=== PATIENT | male | born 1940 | race Caucasian/White ===

== ENCOUNTER 2017-06-04 08:22 | Inpatient (IN) | payer OTHER ==
[2017-06-04] MEDS ORDERED: Midazolam 1mg/ml 2 ml vial IV ONE ×2 (08:26→09:14)
[2017-06-04] MEDS ORDERED: Midazolam 1mg/ml 2 ml vial IV STA ×2 (08:45→09:12)
[2017-06-04] MEDS ORDERED: Levofloxacin 500mg/100mL 500 MG/100 ML BAG IV ONE ×2 (09:18→09:26)
--- NOTE | 2017-06-04 09:18 | ED Physician Chart ---
ED Chief Complaint/HPI - Patient Information Date Seen:: 06/04/17 Time Seen:: 08:35 Chief Complaint:: Dyspnea History of Present Illness:: onset x 3 hours of dyspnea, cough, and congestion with wheezing; no report of H/ As, neck pain, S/T, hempotysis, C/P, Abd. Pain, A/N/V/D/C, fever, chills, or urinary s/s Allergies:: Allergies Allergy/AdvReac Type Severity Reaction Status Date / Time No Known Allergies Allergy Verified 06/04/17 08:38 Vitals:: Vital Signs - 8 hr 06/04/17 06/04/17 08:39 08:47 Temp 98.3 F 98.3 F HR 116 108 RR 32 13 BP 180/61 180/61 O2 Sat % 75 99 Historian:: Patient, EMS Review:: Nurse's Note Reviewed, Old Chart Reviewed, EMS run form Reviewed ED Review of Systems - Review of Systems General/Constitutional: No fever, No chills, No weight loss, No weakness, No diaphoresis, No edema, No loss of appetite Skin: No skin lesions, No rash, No bruising Head: No headache, No light-headedness Eyes: No loss of vision, No pain, No diplopia ENT: No earache, No nasal drainage, No sore throat, No tinnitus Neck: No neck pain, No swelling, No thyromegaly, No stiffness, No mass noted Cardio Vascular: No chest pain, No palpitations, No PND, No orthopnea, No edema Pulmonary: SOB, Cough, No sputum, Wheezing GI: No nausea, No vomiting, No diarrhea, No pain, No melena, No hematochezia, No constipation, No hematemesis G/U: No dysuria, No frequency, No hematuria Musculoskeletal: No bone or joint pain, No back pain, No muscle pain Endocrine: No polyuria, No polydipsia Psychiatric: No prior psych history, No depression, No anxiety, No suicidal ideation Hematopoietic: No bruising, No lymphadenopathy Allergic/Immuno: No urticaria, No angioedema Neurological: No syncope, No focal symptoms, No weakness, No paresthesia, No headache, No seizure, No dizziness, No confusion, No vertigo ED Past Medical History - Past Medical History Obtainable: Yes Past Medical History: HTN, Asthma/COPD Family History: HTN Social History: Smoker, Alcohol, No Drug Use, Surgical History: None Psychiatricy History: None Medication: Reviewed Family Medical History - Family Member Father History Unknown: Yes ED Physical Exam - Physical Examination General/Constitutional: Awake, Well-developed, well-nourished, Alert, No distress, GCS 15, Non-toxic appearing, Ambulatory Head: Atraumatic Eyes: Lids, conjuctiva normal, PERRL, EOMI Skin: Nl inspection, No rash, No skin lesions, No ecchymosis, Well hydrated, No lymphadenopathy ENMT: External ears, nose nl, TM canals nl, Nasal exam nl, Lips, teeth, gums nl , Oropharynx nl, Tonsils nl Neck: Nontender, Full ROM w/o pain, No JVD, No nuchal rigidity, No bruit, No mass, No stridor Respiratory: Nl effort/Exclusion Other Respiratory comments:: Lungs: + Rales, Rhonchi, and Wheezing; R>L Cardio Vascular: RRR, No murmur, gallop, rubs, NL S1 S2, Carotid/Femoral/Distal pulses equal bilaterally GI: No tenderness/rebounding/guarding, No organomegaly, No hernia, Normal BS's, Nondistended, No mass/bruits, No McBurney tenderness : No CVA tenderness Extremities: No tenderness or effusion, Full ROM, normal strength in all extremities, No edema, Normal digits & nails Neuro/Psych: Alert/oriented, DTR's symmetric, Normal sensory exam, Normal motor strength, Judgement/insight normal, Mood normal, Normal gait, No focal deficits Misc: Normal back, No paraspinal tenderness ED Labs/Radiology/EKG Results - Lab Results Comments:: WBC: 16.9; D-Dimer: 465; BNP:810; Na+: 135 - Radiology Results Comments:: CXR: Good ET Tube Placement; + CM; + RML Infiltrate; + COPD - EKG Interpretations EKG Time:: 10:41 Rate & Rhythm: 106; ST Comments:: PVCs; non-specific ST-T Changes ED Assessment - Procedures Procedures:: Oral Endotracheal Intubation Informed Consent: Procedure/risk/benefits explained by MD: Yes ED Septic Shock - . Is Septic Shock (SBP<90, OR Lactate>4 mmol\L) present?: No - <6hrs of presentation: Vital Signs: Vital Signs - 8 hr 06/04/17 06/04/17 08:39 08:47 Temp 98.3 F 98.3 F HR 116 108 RR 32 13 BP 180/61 180/61 O2 Sat % 75 99 ED Reassessment (Disposition) - Reassessment Reassessment Condition:: Improved - Diagnosis Diagnosis:: COPD; Dyspnea; CHF; Hypotension; Exacerbation of COPD; Pneumonia; Hyponatremia; Sepsis; Respiratory Failure; R/O Pulmonary Embolus - Aftercare/Follow up Instructions Aftercare/Follow-Up Instructions:: Counseled pt regarding lab results/diagnosis & need follow up, Counseled pt & family regarding lab results/diagnosis & need follow up - Patient Disposition Discharge/Transfer:: Acute Care w/in this hosp Accepting Physician:: Dr. Santana Time Called:: 1100 Time Responded:: 11:00 Admitted to:: ICU Spoke to:: Dr. Santana Admitting Medical Physician:: Dr. Santana Condition at Disposition:: Stable, Improved
[2017-06-04 09:22] LABS: HEMOGLOBIN 12.4 gm/dL (12-16)
--- NOTE | 2017-06-04 09:27 | Diagnostic Imaging Report ---
Portable chest x-ray HISTORY: Pain The heart is enlarged. Atherosclerotic calcination seen in the aorta. There is extensive abnormal density within the right hilar/perihilar region with severe infiltrate throughout the right lower lobe. Findings may be associated with pneumonia. Underlying right hilar pathology cannot be excluded. There is an approximate 2.0 cm nodular density projecting over the periphery of the left mid chest. The pulmonary parenchymal nodule cannot be excluded. An endotracheal tube tip is approximately 3.5 cm above the sobeida. Surgical suture material and clips noted over the heart. IMPRESSION: 1. Extensive abnormal density in infiltrate within the right hilar/perihilar area. Findings may be associated with pneumonia. Underlying hilar pathology cannot be excluded 2. Round density in the periphery of the left mid chest. Etiology uncertain. A follow-up CT scan would provide for further assessment. 3. Cardiomegaly with atherosclerotic vascular changes 4. Surgical changes 5. Endotracheal tube tip approximately 3.5 cm above the sobeida.
[2017-06-04 09:38] LABS: ALB/GLOB RATIO 1.4 (1.0-1.8); ALBUMIN 3.6 gm/dL (4.2-5.5); ALKALINE PHOSPHATASE 69 U/L (34-104); ANION GAP 9.9 (7.0-16.0); BILIRUBIN,TOTAL 0.4 mg/dL (0.3-1.0); BUN - UREA NITROGEN 15 mg/dL (7-25); CALCIUM SERUM 8.7 mg/dL (8.6-10.3); CARBON DIOXIDE 32.6 mEq/L (21.0-31.0); CHLORIDE 97 mEq/L (98-107); CHOLESTEROL 177 mg/dL (<200); CREATININE - SERUM 0.6 mg/dL (0.7-1.3); CREATININE KINASE 53 U/L (30-223); GLUCOSE 126 mg/dL (70-105); HDL -HIGH DENSITY LIPOPROTEIN 75 mg/dL (23-92); HEMATOCRIT 37.3 % (41.0-60); POTASSIUM SERUM 4.5 mEq/L (3.5-5.1); RED BLOOD COUNT 3.77 Mil/cmm (3.80-5.80); SGOT 44 U/L (13-39); SGPT/ALT 86 U/L (7-52); SODIUM SERUM 135 mEq/L (136-145); TOTAL PROTEIN,SERUM 6.1 gm/dL (6.0-8.3); TRIGLYCERIDES 76 mg/dL (<150); WHITE BLOOD COUNT 16.9 Th/cmm (4.8-10.8)
[2017-06-04 09:39] LABS: MEAN CELL VOLUME 98.9 fl (80-99); MEAN CORPUSCULAR HGB CONC 33.3 pg (28.0-36.0); PLATELET COUNT 250 Th/cmm (150-400); RED CELL DISTRIBUTION WIDTH 13.6 % (11.5-20.0)
[2017-06-04 09:40] LABS: MANUAL DIFF REQUIRED? YES
[2017-06-04 09:48] LABS: BAND NEUTROPHILE 3 % (0-10); EOSINOPHIL 3 % (0-5); LYMPHOCYTE 8 % (20-50); MONOCYTE 3 % (2-10); NEUTROPHILS 83 % (40-80); TOTAL CELLS COUNTED 100
[2017-06-04 09:51] LABS: INR 1.07 (0.5-1.4); PROTHROMBIN TIME (TEST) 11.1 SECONDS (9.5-11.5)
[2017-06-04 09:55] LABS: DDIMER QUANT 465 ng/mL (100-400)
[2017-06-04] MEDS ORDERED: Sodium Chloride 0.9% 1,000 ML IV ONE (10:30)
[2017-06-04 10:34] LABS: URINE MICROSCOPIC INDICATED? YES; URINE SOURCE MIDSTREAM
[2017-06-04 10:36] LABS: URINE BILIRUBIN NEGATIVE (NEGATIVE); URINE BLOOD NEGATIVE (NEGATIVE); URINE GLUCOSE (UA) NEGATIVE (NEGATIVE); URINE KETONE NEGATIVE (NEGATIVE); URINE LEUKOCYTE ESTERASE NEGATIVE (NEGATIVE); URINE NITRATE NEGATIVE (NEGATIVE); URINE PROTEIN 30 mg/dL (NEGATIVE); URINE UROBILINOGEN 0.2 E.U./dL (0.2 - 1.0)
[2017-06-04 10:37] LABS: URINE CLARITY HAZY (CLEAR); URINE COLOR YELLOW
[2017-06-04 10:42] LABS: URINE BACTERIA FEW /hpf (NONE SEEN); URINE EPITHELIAL CELLS FEW /lpf (FEW); URINE FINE GRANULAR CAST 0-2 /lpf (NONE SEEN); URINE RBC 0-2 /hpf (0-5)
[2017-06-04 13:53] LABS: pH 7.36 (7.35-7.45)
[2017-06-04 13:54] LABS: ALLEN TEST Positive
[2017-06-04] MEDS: D5-0.9NS w/KCL 20mEq 1,000 ML IV SCH (14:47)
[2017-06-04] MEDS: methylPREDNISolone SS 40 mg Vial IVP SCH ×2 (14:47→18:43)
[2017-06-04 15:30] VITALS: BP 130/76
[2017-06-04] MEDS: Albuterol/Ipratropium Neb 3 ML AERS HHN SCH ×2 (15:49→19:44)
--- NOTE | 2017-06-04 15:51 | History & Physical ---
ADMIT DATE: 06/04/2017 CHIEF COMPLAINT: Acute respiratory failure. HISTORY OF PRESENT ILLNESS: The patient is a 77-year-old male with history of COPD, presented to the Emergency Room with cough, shortness of breath of a few days' duration. The patient evaluated by the ER physician. Initial workup was significant for pneumonia, acute respiratory failure. The patient was intubated to ICU. No nausea, no vomiting, no chest pain. The patient is on the ventilator, but still following commands. PAST MEDICAL HISTORY: Significant for COPD. PAST SURGICAL HISTORY: No recent surgery. ALLERGIES: None. MEDICATIONS: Follow admission reconciliation. SOCIAL HISTORY: Chronic smoker. No alcohol or drugs. FAMILY HISTORY: Noncontributory. REVIEW OF SYSTEMS: RENAL SYSTEM: No history of chronic renal disorder. CARDIOVASCULAR SYSTEM: No coronary artery disease. ENDOCRINE SYSTEM: No diabetes or thyroid problem. GASTROINTESTINAL SYSTEM: No upper or lower gastrointestinal bleed. NEUROLOGICAL SYSTEM: No seizure disorder. MUSCULOSKELETAL SYSTEM: No muscular dystrophy. HEMATOLOGIC SYSTEM: No bleeding tendencies. RESPIRATORY SYSTEM: History of COPD, pneumonia, acute respiratory failure. PHYSICAL EXAMINATION: GENERAL: He is awake, he is on the ventilator, following some commands, mildly agitated. VITAL SIGNS: Temperature 99.3, heart rate 100, blood pressure 114/65. HEENT: Normocephalic. Pupils reacting equal to light and accommodation. Sclerae clear. NECK: Supple. Negative for lymphadenopathy, JVD or bruit. CHEST: Entry of air bilaterally diminished. HEART: S1, S2 normal. Tachycardia. ABDOMEN: Soft, bowel sounds positive. EXTREMITIES: No edema. NEUROLOGICAL: He is awake, following command, moving upper and lower extremities. LABORATORY DATA: White blood 16.9, hemoglobin 12.4, hematocrit 37.3, platelet 250. Sodium 135, potassium 4.5, BUN 15, creatinine 0.6. BNP 810. ASSESSMENT: 1. Pneumonia. 2. Acute respiratory failure. 3. Acute exacerbation of COPD. 4. Congestive heart failure. PLAN: The patient admitted to the ICU under Dr. Santana's service. Start him on IV fluid, IV Protonix, IV Solu-Medrol, breathing treatment. Pulmonary was consulted on the case. Infectious Disease consult on the case. Echocardiogram was ordered. CBC, CMP for tomorrow. The patient is a full code. Lovenox 40 subq daily for DVT prophylaxis. JOB# [id number]
[2017-06-04 17:25] LABS: INF A SCREEN NEG FOR INF A; INF B SCREEN NEG FOR INF B
[2017-06-04] MEDS: Levofloxacin 250mg/50mL 250 MG/50 ML BAG IV SCH (18:42)
[2017-06-04] MEDS: Chlorhexidine Gluconate 0.12% 15mL Mouthwash MM SCH (20:11)
[2017-06-04] MEDS: Enoxaparin 40 mg/0.4 mL 0.4mL Syr SUBQ SCH (20:47)
[2017-06-05] MEDS: methylPREDNISolone SS 40 mg Vial IVP SCH ×5 (00:12→23:31)
[2017-06-05] MEDS: Albuterol/Ipratropium Neb 3 ML AERS HHN SCH ×4 (00:43→19:38)
--- NOTE | 2017-06-05 03:47 | Consultation ---
DATE OF CONSULTATION: 06/04/[address] Santana. Thank you very much Dr. Santana for this consultation. HISTORY OF PRESENT ILLNESS: The patient is a 77-year-old man with history of COPD, presents with acute respiratory distress, hypoxemia. He is in severe distress, required to be intubated. The patient is intubated, awake, responsive, not in acute distress. The patient stated he does have COPD and has been smoker for many years up to the point of admission. PAST MEDICAL HISTORY: As above. SOCIAL HISTORY: As above. REVIEW OF SYSTEMS: Unable to obtain because of the patient's condition. PHYSICAL EXAMINATION: GENERAL: The patient is intubated, not in distress. VITAL SIGNS: Temperature 99.3, pulse 100, respirations 13, blood pressure is 114/65, and saturation 99%. HEENT: Atraumatic and normocephalic. Pupils are equal to light and accommodation. Ears, nose, and throat normal. NECK: Supple. No JVD. CHEST: There are scattered wheezing and rhonchi bilaterally. HEART: Regular rate and rhythm. ABDOMEN: Soft. EXTREMITIES: No edema. LABORATORY DATA AND DIAGNOSTIC DATA: WBC 16.9, hemoglobin 12.4, hematocrit was 37.3, and platelets 250. Sodium 135, potassium is 4.5, BUN is 15, and creatinine 0.6. BNP is 810. A chest x-ray, extensive infiltrates, right lower lobe area. COPD changes. IMPRESSION: 1. This is a 77-year-old male with acute respiratory failure. 2. Chronic obstructive pulmonary disease exacerbation. 3. Pneumonia. PLAN: 1. IV antibiotics. 2. Nebulizer treatment. 3. Ventilator support. 4. Follow up ABGs. 5. Sputum culture and influenza test as well. Thank you very much for this consultation. I will follow the patient with you. JOB# [id number]
[2017-06-05] MEDS: D5-0.9NS w/KCL 20mEq 1,000 ML IV SCH ×2 (04:51→15:24)
[2017-06-05 06:12] LABS: HEMOGLOBIN 11.1 gm/dL (12-16); LYMPHOCYTE ABSOLUTE 0.3 Th/cmm (1.5-3.0); MEAN CELL VOLUME 98.3 fl (80-99); MEAN CORPUSCULAR HGB CONC 33.6 pg (28.0-36.0); MEAN PLATELET VOLUME 8.2 fl; MONOCYTE ABSOLUTE 0.2 Th/cmm (0.3-1.0); NEUTROPHILE ABSOLUTE 7.1 Th/cmm (1.8-8.0); PLATELET COUNT 221 Th/cmm (150-400); RED BLOOD COUNT 3.35 Mil/cmm (3.80-5.80); RED CELL DISTRIBUTION WIDTH 13.4 % (11.5-20.0)
[2017-06-05 06:13] LABS: WHITE BLOOD COUNT 7.6 Th/cmm (4.8-10.8)
[2017-06-05 06:25] LABS: ALB/GLOB RATIO 1.4 (1.0-1.8); ALKALINE PHOSPHATASE 54 U/L (34-104); ANION GAP 7.6 (7.0-16.0); BILIRUBIN,TOTAL 0.5 mg/dL (0.3-1.0); BUN - UREA NITROGEN 17 mg/dL (7-25); CALCIUM SERUM 8.4 mg/dL (8.6-10.3); CARBON DIOXIDE 34.2 mEq/L (21.0-31.0); CHLORIDE 102 mEq/L (98-107); CREATININE - SERUM 0.6 mg/dL (0.7-1.3); GLUCOSE 156 mg/dL (70-105); POTASSIUM SERUM 4.8 mEq/L (3.5-5.1); SGOT 19 U/L (13-39); SGPT/ALT 56 U/L (7-52); SODIUM SERUM 139 mEq/L (136-145); TOTAL PROTEIN,SERUM 5.2 gm/dL (6.0-8.3)
--- NOTE | 2017-06-05 09:06 | Diagnostic Imaging Report ---
Portable chest x-ray HISTORY: Shortness of breath Compared with prior exam of June 04, 2017, the heart remains enlarged. There remains abnormal density within the right hilar/perihilar region. Underlying pathology including neoplasm cannot be excluded. A CT scan is recommended for further assessment and evaluation. Slight decrease in right perihilar infiltrate. An endotracheal tube tip is approximately 5.0 cm above the sobeida. Surgical changes again noted. IMPRESSION: 1. Decreased infiltrate within the right perihilar and right lower lobe regions 2. Persistent abnormal density within the right hilar area. Underlying pathology including neoplasm cannot be excluded. A CT scan with intravenous contrast would provide additional assessment. 3. Endotracheal tube tip approximate 5.0 cm above the sobeida. This may be advanced approximately 2.0 cm.
[2017-06-05 10:04] LABS: ALLEN TEST Positive
[2017-06-05] MEDS: Enoxaparin 40 mg/0.4 mL 0.4mL Syr SUBQ SCH ×2 (10:16→20:37)
[2017-06-05] MEDS: Chlorhexidine Gluconate 0.12% 15mL Mouthwash MM SCH ×2 (10:16→20:18)
[2017-06-05] MEDS ORDERED: Probiotic Screen MC PRN (10:30)
[2017-06-05] MEDS ORDERED: Influenza Vaccine 0.5 mL Syr IM ONE (15:51)
[2017-06-05] MEDS ORDERED: Pneumococcal Vaccine 0.5 mL Vial IM ONE (15:51)
--- NOTE | 2017-06-05 17:31 | Internal Medicine Prog Note ---
Internal Medicine Subjective - Subjective Service Date: 06/05/17 Patient seen and examined:: with staff Patient is:: awake, non-verbal, in bed Patient Complaints of:: congestion Per staff patient has:: no adverse event Internal Medicine Objective - Results Result Diagrams: 06/05/17 05:15 06/05/17 05:15 Recent Labs: Laboratory Last Values WBC 7.6 Th/cmm (4.8-10.8) D 06/05/17 05:15 RBC 3.35 Mil/cmm (3.80-5.80) L 06/05/17 05:15 Hgb 11.1 gm/dL (12-16) L 06/05/17 05:15 Hct 33.0 % (41.0-60) L D 06/05/17 05:15 MCV 98.3 fl (80-99) 06/05/17 05:15 MCH 33.0 pg (27.0-31.0) H 06/05/17 05:15 MCHC Differential 33.6 pg (28.0-36.0) 06/05/17 05:15 RDW 13.4 % (11.5-20.0) 06/05/17 05:15 Plt Count 221 Th/cmm (150-400) 06/05/17 05:15 MPV 8.2 fl 06/05/17 05:15 Band Neutrophils % 3 % (0-10) 06/04/17 09:10 Neutrophils (Manual) 83 % (40-80) H 06/04/17 09:10 Lymphocytes 8 % (20-50) L 06/04/17 09:10 Monocytes 3 % (2-10) 06/04/17 09:10 Eosinophils 3 % (0-5) 06/04/17 09:10 PT 11.1 SECONDS (9.5-11.5) 06/04/17 09:10 INR 1.07 (0.5-1.4) 06/04/17 09:10 PTT (Actin FS) 22.5 SECONDS (26.0-38.0) L 06/04/17 09:10 D-Dimer 465 ng/mL (100-400) H 06/04/17 09:10 Specimen Source Arterial 06/05/17 09:52 Sample Site Right Radial 06/05/17 09:52 pH 7.40 (7.35-7.45) 06/05/17 09:52 pCO2 60.0 mmHg (35.0-45.0) H* 06/05/17 09:52 pO2 87.0 mmHg (80.0-100.0) 06/05/17 09:52 HCO3 32.9 mEq/L (20.0-26.0) H 06/05/17 09:52 Base Excess 10.2 mEq/L (-3.0-3.0) H 06/05/17 09:52 O2 Saturation 97.0 % (92.0-100.0) 06/05/17 09:52 Guy Test Positive 06/05/17 09:52 Vent Rate 12 06/05/17 09:52 Inspired O2 40 06/05/17 09:52 Tidal Volume 550 06/05/17 09:52 PEEP NA 06/05/17 09:52 Pressure (ins/psv/peep) NA 06/05/17 09:52 Critical Value LZHANG 06/05/17 09:52 Sodium 139 mEq/L (136-145) 06/05/17 05:15 Potassium 4.8 mEq/L (3.5-5.1) 06/05/17 05:15 Chloride 102 mEq/L (98-107) 06/05/17 05:15 Carbon Dioxide 34.2 mEq/L (21.0-31.0) H 06/05/17 05:15 Anion Gap 7.6 (7.0-16.0) 06/05/17 05:15 BUN 17 mg/dL (7-25) 06/05/17 05:15 Creatinine 0.6 mg/dL (0.7-1.3) L 06/05/17 05:15 Est GFR ( Amer) TNP 06/05/17 05:15 Est GFR (Non-Af Amer) TNP 06/05/17 05:15 BUN/Creatinine Ratio 28.3 06/05/17 05:15 Glucose 156 mg/dL (70-105) H 06/05/17 05:15 Whole Bld Lactic Acid 1.34 mmol/L (0.60-1.99) 06/04/17 09:10 Calcium 8.4 mg/dL (8.6-10.3) L 06/05/17 05:15 Magnesium 2.0 mg/dL (1.9-2.7) 06/05/17 15:47 Total Bilirubin 0.5 mg/dL (0.3-1.0) 06/05/17 05:15 AST 19 U/L (13-39) 06/05/17 05:15 ALT 56 U/L (7-52) H 06/05/17 05:15 Alkaline Phosphatase 54 U/L (34-104) 06/05/17 05:15 Creatine Kinase 53 U/L (30-223) 06/04/17 09:10 Troponin I 0.04 ng/mL (0.01-0.05) 06/04/17 09:10 B-Natriuretic Peptide 810.0 pg/mL (5.0-100.0) H 06/04/17 09:10 Total Protein 5.2 gm/dL (6.0-8.3) L 06/05/17 05:15 Albumin 3.0 gm/dL (4.2-5.5) L 06/05/17 05:15 Globulin 2.2 gm/dL 06/05/17 05:15 Albumin/Globulin Ratio 1.4 (1.0-1.8) 06/05/17 05:15 Triglycerides 76 mg/dL (<150) 06/04/17 09:10 Cholesterol 177 mg/dL (<200) 06/04/17 09:10 LDL Cholesterol Direct 95 mg/dL (75-193) 06/04/17 09:10 HDL Cholesterol 75 mg/dL (23-92) 06/04/17 09:10 Urine Source MIDSTREAM 06/04/17 10:20 Urine Color YELLOW 06/04/17 10:20 Urine Clarity HAZY (CLEAR) 06/04/17 10:20 Urine pH 6.0 (4.6 - 8.0) 06/04/17 10:20 Ur Specific [place] >= 1.030 (1.005-1.030) 06/04/17 10:20 Urine Protein 30 mg/dL (NEGATIVE) H 06/04/17 10:20 Urine Glucose (UA) NEGATIVE mg/dL (NEGATIVE) 06/04/17 10:20 Urine Ketones NEGATIVE mg/dL (NEGATIVE) 06/04/17 10:20 Urine Blood NEGATIVE (NEGATIVE) 06/04/17 10:20 Urine Nitrate NEGATIVE (NEGATIVE) 06/04/17 10:20 Urine Bilirubin NEGATIVE (NEGATIVE) 06/04/17 10:20 Urine Urobilinogen 0.2 E.U./dL (0.2 - 1.0) 06/04/17 10:20 Ur Leukocyte Esterase NEGATIVE (NEGATIVE) 06/04/17 10:20 Urine RBC 0-2 /hpf (0-5) H 06/04/17 10:20 Urine WBC 2-5 /hpf (0-5) H 06/04/17 10:20 Ur Epithelial Cells FEW /lpf (FEW) 06/04/17 10:20 Urine Bacteria FEW /hpf (NONE SEEN) 06/04/17 10:20 Fine Granular Casts 0-2 /lpf (NONE SEEN) H 06/04/17 10:20 Urine Mucus FEW /lpf (FEW) 06/04/17 10:20 Vancomycin Trough 7.9 ug/mL (10-20) L 06/05/17 12:40 Influenza A (Rapid) NEG FOR INF A 06/04/17 16:55 Influenza B (Rapid) NEG FOR INF B 06/04/17 16:55 - Physical Exam Vitals and I&O: Vital Signs Temp 98.7 F 06/05/17 16:00 Pulse 91 06/05/17 16:00 Resp 17 06/05/17 16:00 BP 121/68 06/05/17 16:00 Pulse Ox 98 06/05/17 16:00 Intake & Output 06/04/17 06/05/17 06/05/17 18:59 06:59 18:59 Intake Total 50 1465 885 Output Total 600 Balance 50 865 885 Weight (lbs) 65.771 kg Intake: Intake, IV Amount 50 1465 885 D5-0.9NS w/KCL 20mEq 1, 1115 885 000 ml @ 100 mls/hr IV . Q10H [facility] Rx#:[id number] Levofloxacin 250mg/50mL 50 250 mg In 50 ml @ 50 mls/ hr IV Q24HR [facility] Rx#: [id number] Piperacillin Sodium/ 50 50 Tazobact 3.375 gm In Sodium Chloride 0.9% 50 ml @ 100 mls/hr IV Q6HR [facility]IETA Rx#:[id number] Vancomycin HCl 1 gm In 250 Sodium Chloride 0.9% 250 ml @ 165 mls/hr IV Q12H [facility] Rx#:[id number] Oral 0 Output: Urine 600 Other: # Bowel Movements 0 Active Medications: Current Medications Acetaminophen (Tylenol 650mg Supp) 650 mg RC Q6H PRN PRN Reason: Fever >100 Stop: 08/03/17 12:44 Albuterol/Ipratropium (Duoneb Neb) 3 ml HHN Q6H [facility] Stop: 08/03/17 12:44 Last Admin: 06/05/17 14:13 Dose: 3 ml Chlorhexidine Gluconate (Peridex) 15 ml MM 0800,1999 [facility] Stop: 08/03/17 19:59 Last Admin: 06/05/17 10:16 Dose: 15 ml Enoxaparin Sodium (Lovenox) 40 mg SUBQ Q12HR [facility] Stop: 08/03/17 20:59 Last Admin: 06/05/17 10:16 Dose: 40 mg Potassium Chloride/Dextrose/Sod Cl (D5-0.9ns W/Kcl 20meq) 1,000 mls @ 100 mls/ hr IV .Q10H [facility] Stop: 08/03/17 12:44 Last Admin: 06/05/17 15:24 Dose: 100 mls/hr Vancomycin HCl 1 gm/ Sodium (Chloride) 250 mls @ 165 mls/hr IV Q12H [facility] Stop: 08/03/17 13:59 Last Admin: 06/05/17 15:22 Dose: 165 mls/hr Levofloxacin (Levaquin Pb) 250 mg in 50 mls @ 50 mls/hr IV Q24HR [facility] Stop: 08/03/17 16:59 Last Infusion: 06/04/17 19:45 Dose: Infused Piperacillin Sod/Tazobactam (Sod 3.375 gm/ Sodium Chloride) 50 mls @ 100 mls/ hr IV Q6HR [facility] Stop: 08/04/17 17:59 Lactobacillus Rhamnosus (Culturelle 15b) 1 each PO DAILY [facility] Stop: 08/05/17 08:59 Lorazepam (Ativan) 1 mg IVP Q2HR PRN; Protocol PRN Reason: Agitation Stop: 08/03/17 12:44 Last Admin: 06/05/17 03:24 Dose: 1 mg Methylprednisolone Sodium Succinate (Solu-Medrol) 40 mg IVP Q6HR [facility] Stop: 08/03/17 12:44 Last Admin: 06/05/17 12:36 Dose: 40 mg Miscellaneous (Vancomycin Iv Per Pharmacy) 1 ea [facility] PRN PRN PRN Reason: PROTOCOL Stop: 08/03/17 12:44 Miscellaneous (Probiotic Screen) 1 ea [facility] PRN PRN PRN Reason: PROTOCOL Stop: 08/04/17 10:29 Pantoprazole Sodium (Protonix) 40 mg IVP DAILY [facility] Stop: 08/04/17 08:59 Last Admin: 06/05/17 10:16 Dose: 40 mg HEENT: NC/AT, PERRLA, EOMI, throat clear Neck: Supple, No JVD, No thyromegaly, No LAD Lungs: congested Cardiovascular: RRR, Normal S1, Normal S2, without murmur Abdomen: non-tender, tender, non-distended Extremities: clear Neurological: no change - Procedures Procedures: Procedures Procedure Code Date COLONOSCOPY 45.23 05/25/00 DIAGNOSTIC COLONOSCOPY 68566 05/25/00 DOPPLER COLOR FLOW ADD-ON 59052 11/03/99 DOPPLER ECHO EXAM HEART 57390 11/03/99 DX ULTRASOUND-HEART 88.72 11/03/99 ELECTROCARDIOGRAM 89.52 11/03/99 ELECTROCARDIOGRAM COMPLETE 02475 11/03/99 TTE W/O DOPPLER COMPLETE 83973 11/03/99 Internal Medicine Assmt/Plan - Assessment Assessment: 1.PNEUMONIA. 2.COPD EXACERBATION. 3.CHF. 4.ACUTE REPIRATORY FAILURE. - Plan Plan: CONTINUE ON CURRENT MEDICATION AND DIET
[2017-06-05] MEDS: Levofloxacin 250mg/50mL 250 MG/50 ML BAG IV SCH (17:40)
--- NOTE | 2017-06-05 23:55 | Consultation ---
DATE OF CONSULTATION: 06/04/2017 PRIMARY CARE PHYSICIAN: Dr. Santana. HISTORY OF PRESENT ILLNESS: This is a 77-year-old male known to have asthma and started having shortness of breath. The patient was evaluated in the ER and was found in respiratory failure, intubated, admitted to ICU. Infectious consultation was called for further treatment. The patient's discussed with the staff. Antibiotic adjusted. PAST MEDICAL HISTORY: Alcohol use, asthma, hypertension. FAMILY HISTORY: Negative and the patient is current some day smoker. ALLERGIES: None. REVIEW OF SYSTEMS: A 14-point review of systems unable to obtain as the patient was sedated on examination. PHYSICAL EXAMINATION: GENERAL: The patient is an elderly male. VITAL SIGNS: The patient is on ventilator with the following vitals: Temperature 98.3, pulse 108, respirations 13 on ventilator, blood pressure 180/60. HEENT: Mild pallor, no icterus or plaque. NECK: Supple. LUNGS: Breath sounds bilateral vesicular, decreased all over. CARDIOVASCULAR: S1, S2. ABDOMEN: Soft. Bowel sounds . LYMPHATIC: No thyroid, no cervical lymph nodes. LABORATORY DATA: White count 16,000, hemoglobin normal. D-dimer is 465. BNP is 810. Chest x-ray shows endotracheal tube and right-sided infiltrates, COPD. DIAGNOSES: Asthma, chronic obstructive pulmonary disease, alcohol use, hypertension, and pneumonia. PLAN: Cultures were done and the patient will be started on vancomycin, Zosyn, and Levaquin. Ativan for sedation. COPD, steroids and bronchodilator. DVT prophylaxis, Lovenox. Rest of the care as ordered in [facility]. Thank you Dr. Santana for this consultation. JOB# [id number]
[2017-06-06] MEDS ORDERED: Albuterol/Ipratropium Neb 3 ML AERS HHN ONE ×2 (00:39→20:26)
[2017-06-06] MEDS: Albuterol/Ipratropium Neb 3 ML AERS HHN SCH ×3 (00:47→20:30)
[2017-06-06] MEDS: methylPREDNISolone SS 40 mg Vial IVP SCH ×3 (05:17→17:18)
[2017-06-06] MEDS: D5-0.9NS w/KCL 20mEq 1,000 ML IV SCH ×2 (06:06→20:02)
[2017-06-06] MEDS: Ipratropium Neb 0.5 mg/2.5 mL UD HHN SCH ×2 (07:50→13:01)
[2017-06-06] MEDS: Albuterol Nebulizer 2.5mg/3mL HHN SCH ×2 (07:51→13:01)
[2017-06-06] MEDS: Enoxaparin 40 mg/0.4 mL 0.4mL Syr SUBQ SCH ×2 (09:05→20:58)
[2017-06-06] MEDS: Aspirin 81mg Chewable Tab PO SCH (09:12)
[2017-06-06] MEDS: Lactobacillus Rhamnosus GG 15 Billion CFU CAP.SPRINK PO SCH ×4 (09:14→10:48)
--- NOTE | 2017-06-06 09:17 | Diagnostic Imaging Report ---
Exam: CT examination of the chest. HISTORY: Right hilar mass Total DLP equals 234 CTDI equals 6.1 Findings: Multiple contiguous thin section of the chest were obtained from thoracic outlet to the upper abdomen without the administration of contrast material therefore the study is limited. The study demonstrates normal appearance of great vessels of the neck the study is limited without contrast material adenopathy cannot be excluded. The endotracheal tube visualized. Aorta diffusely calcified. There is evidence for a line check right hilar mass measuring 9.1 cm diameter. There is evidence for right lower lobe pneumonia superimposed effusion. Left pleural thickening with a small effusion appreciated. There is multiple nodularities in the left lung largest one measuring 1.5 cm diameter most likely represent neoplastic metastatic etiology. Bony structures demonstrate no evidence for lytic or blastic lesions. The study somewhat limited due to patient motion artifacts. The upper abdomen examination demonstrates unremarkable appearance of liver and spleen. There is evidence of cholelithiasis. The abdominal aorta diffusely calcified. There is evidence for mesenteric induration in the retroperitoneal area. IMPRESSION: 1. 9.1 cm right hilar mass with subsequent right middle and lower lobe pneumonia and bilateral effusions and pleural thickening. 2. Left lung nodularity is questioned neoplastic metastatic disease. Left basilar atelectasis no pleural effusion. 3. Correlation with prior studies recommended.
[2017-06-06] MEDS: Chlorhexidine Gluconate 0.12% 15mL Mouthwash MM SCH (09:25)
[2017-06-06 15:56] LABS: pH 7.24 (7.35-7.45)
[2017-06-06 15:59] LABS: ALLEN TEST Y
[2017-06-06] MEDS: Levofloxacin 250mg/50mL 250 MG/50 ML BAG IV SCH (17:17)
[2017-06-06 18:10] LABS: ALLEN TEST Y
--- NOTE | 2017-06-06 23:36 | Internal Medicine Prog Note ---
Internal Medicine Subjective - Subjective Service Date: 06/06/17 Patient seen and examined:: with staff (HE EXTUBATED HIM SELF.NOW ON BIPAP.) Patient is:: awake, non-verbal, in bed Patient Complaints of:: congestion Per staff patient has:: no adverse event Internal Medicine Objective - Results Result Diagrams: 06/05/17 05:15 06/05/17 05:15 Recent Labs: Laboratory Last Values WBC 7.6 Th/cmm (4.8-10.8) D 06/05/17 05:15 RBC 3.35 Mil/cmm (3.80-5.80) L 06/05/17 05:15 Hgb 11.1 gm/dL (12-16) L 06/05/17 05:15 Hct 33.0 % (41.0-60) L D 06/05/17 05:15 MCV 98.3 fl (80-99) 06/05/17 05:15 MCH 33.0 pg (27.0-31.0) H 06/05/17 05:15 MCHC Differential 33.6 pg (28.0-36.0) 06/05/17 05:15 RDW 13.4 % (11.5-20.0) 06/05/17 05:15 Plt Count 221 Th/cmm (150-400) 06/05/17 05:15 MPV 8.2 fl 06/05/17 05:15 Band Neutrophils % 3 % (0-10) 06/04/17 09:10 Neutrophils (Manual) 83 % (40-80) H 06/04/17 09:10 Lymphocytes 8 % (20-50) L 06/04/17 09:10 Monocytes 3 % (2-10) 06/04/17 09:10 Eosinophils 3 % (0-5) 06/04/17 09:10 PT 11.1 SECONDS (9.5-11.5) 06/04/17 09:10 INR 1.07 (0.5-1.4) 06/04/17 09:10 PTT (Actin FS) 22.5 SECONDS (26.0-38.0) L 06/04/17 09:10 D-Dimer 465 ng/mL (100-400) H 06/04/17 09:10 Specimen Source ARTERIAL 06/06/17 17:22 Sample Site Left Radial 06/06/17 17:22 pH 7.30 (7.35-7.45) L 06/06/17 17:22 pCO2 74.0 mmHg (35.0-45.0) H* 06/06/17 17:22 pO2 115.0 mmHg (80.0-100.0) H 06/06/17 17:22 HCO3 30.8 mEq/L (20.0-26.0) H 06/06/17 17:22 Base Excess 7.5 mEq/L (-3.0-3.0) H 06/06/17 17:22 O2 Saturation 98.0 % (92.0-100.0) 06/06/17 17:22 Guy Test Y 06/06/17 17:22 Vent Rate N/A 06/06/17 17:22 Inspired O2 40 06/06/17 17:22 Tidal Volume N/A 06/06/17 17:22 PEEP N/A 06/06/17 17:22 Pressure (ins/psv/peep) N/A 06/06/17 17:22 Critical Value O. [place]LE[place] 06/06/17 17:22 Sodium 139 mEq/L (136-145) 06/05/17 05:15 Potassium 4.8 mEq/L (3.5-5.1) 06/05/17 05:15 Chloride 102 mEq/L (98-107) 06/05/17 05:15 Carbon Dioxide 34.2 mEq/L (21.0-31.0) H 06/05/17 05:15 Anion Gap 7.6 (7.0-16.0) 06/05/17 05:15 BUN 17 mg/dL (7-25) 06/05/17 05:15 Creatinine 0.6 mg/dL (0.7-1.3) L 06/05/17 05:15 Est GFR ( Amer) TNP 06/05/17 05:15 Est GFR (Non-Af Amer) TNP 06/05/17 05:15 BUN/Creatinine Ratio 28.3 06/05/17 05:15 Glucose 156 mg/dL (70-105) H 06/05/17 05:15 Whole Bld Lactic Acid 1.34 mmol/L (0.60-1.99) 06/04/17 09:10 Calcium 8.4 mg/dL (8.6-10.3) L 06/05/17 05:15 Magnesium 2.0 mg/dL (1.9-2.7) 06/05/17 15:47 Total Bilirubin 0.5 mg/dL (0.3-1.0) 06/05/17 05:15 AST 19 U/L (13-39) 06/05/17 05:15 ALT 56 U/L (7-52) H 06/05/17 05:15 Alkaline Phosphatase 54 U/L (34-104) 06/05/17 05:15 Creatine Kinase 53 U/L (30-223) 06/04/17 09:10 Troponin I 0.04 ng/mL (0.01-0.05) 06/04/17 09:10 B-Natriuretic Peptide 810.0 pg/mL (5.0-100.0) H 06/04/17 09:10 Total Protein 5.2 gm/dL (6.0-8.3) L 06/05/17 05:15 Albumin 3.0 gm/dL (4.2-5.5) L 06/05/17 05:15 Globulin 2.2 gm/dL 06/05/17 05:15 Albumin/Globulin Ratio 1.4 (1.0-1.8) 06/05/17 05:15 Triglycerides 76 mg/dL (<150) 06/04/17 09:10 Cholesterol 177 mg/dL (<200) 06/04/17 09:10 LDL Cholesterol Direct 95 mg/dL (75-193) 06/04/17 09:10 HDL Cholesterol 75 mg/dL (23-92) 06/04/17 09:10 Urine Source MIDSTREAM 06/04/17 10:20 Urine Color YELLOW 06/04/17 10:20 Urine Clarity HAZY (CLEAR) 06/04/17 10:20 Urine pH 6.0 (4.6 - 8.0) 06/04/17 10:20 Ur Specific [place] >= 1.030 (1.005-1.030) 06/04/17 10:20 Urine Protein 30 mg/dL (NEGATIVE) H 06/04/17 10:20 Urine Glucose (UA) NEGATIVE mg/dL (NEGATIVE) 06/04/17 10:20 Urine Ketones NEGATIVE mg/dL (NEGATIVE) 06/04/17 10:20 Urine Blood NEGATIVE (NEGATIVE) 06/04/17 10:20 Urine Nitrate NEGATIVE (NEGATIVE) 06/04/17 10:20 Urine Bilirubin NEGATIVE (NEGATIVE) 06/04/17 10:20 Urine Urobilinogen 0.2 E.U./dL (0.2 - 1.0) 06/04/17 10:20 Ur Leukocyte Esterase NEGATIVE (NEGATIVE) 06/04/17 10:20 Urine RBC 0-2 /hpf (0-5) H 06/04/17 10:20 Urine WBC 2-5 /hpf (0-5) H 06/04/17 10:20 Ur Epithelial Cells FEW /lpf (FEW) 06/04/17 10:20 Urine Bacteria FEW /hpf (NONE SEEN) 06/04/17 10:20 Fine Granular Casts 0-2 /lpf (NONE SEEN) H 06/04/17 10:20 Urine Mucus FEW /lpf (FEW) 06/04/17 10:20 Vancomycin Trough 7.9 ug/mL (10-20) L 06/05/17 12:40 Influenza A (Rapid) NEG FOR INF A 06/04/17 16:55 Influenza B (Rapid) NEG FOR INF B 06/04/17 16:55 - Physical Exam Vitals and I&O: Vital Signs Temp 96.2 F 06/06/17 20:00 Pulse 82 06/06/17 22:00 Resp 29 06/06/17 22:22 BP 134/74 06/06/17 22:00 Pulse Ox 96 06/06/17 22:22 Intake & Output 06/06/17 06/06/17 06/07/17 06:59 18:59 06:59 Intake Total 1150 1300 Output Total 500 450 Balance 650 850 Weight (lbs) 65.317 kg 72.575 kg Intake: Intake, IV Amount 1150 1300 D5-0.9NS w/KCL 20mEq 1, 1000 1000 000 ml @ 100 mls/hr IV . Q10H JULIETA Rx#:[id number] Piperacillin Sodium/ 150 50 Tazobact 3.375 gm In Sodium Chloride 0.9% 50 ml @ 100 mls/hr IV Q6HR JULIETA Rx#:[id number] Vancomycin HCl 1.25 gm In 250 Sodium Chloride 0.9% 250 ml @ 165 mls/hr IV Q12H JULIETA Rx#:[id number] Oral 0 0 Output: Urine 500 450 Other: # Bowel Movements 0 1 Stool Characteristics Hard Hard Active Medications: Current Medications Acetaminophen (Tylenol 650mg Supp) 650 mg RC Q6H PRN PRN Reason: Fever >100 Stop: 08/03/17 12:44 Albuterol/Ipratropium (Duoneb Neb) 3 ml HHN Q6H [facility] Stop: 08/03/17 12:44 Last Admin: 06/06/17 20:30 Dose: 3 ml Aspirin (Aspirin Chewable) 81 mg PO DAILY [facility] Stop: 08/05/17 08:59 Last Admin: 06/06/17 09:12 Dose: Not Given Calcium Carbonate (Os-Tai) 500 mg PO DAILY [facility] Stop: 08/05/17 08:59 Last Admin: 06/06/17 10:47 Dose: Not Given Enoxaparin Sodium (Lovenox) 40 mg SUBQ Q12HR [facility] Stop: 08/03/17 20:59 Last Admin: 06/06/17 20:58 Dose: 40 mg Potassium Chloride/Dextrose/Sod Cl (D5-0.9ns W/Kcl 20meq) 1,000 mls @ 100 mls/ hr IV .Q10H [facility] Stop: 08/03/17 12:44 Last Admin: 06/06/17 20:02 Dose: 100 mls/hr Levofloxacin (Levaquin Pb) 250 mg in 50 mls @ 50 mls/hr IV Q24HR [facility] Stop: 08/03/17 16:59 Last Admin: 06/06/17 17:17 Dose: 50 mls/hr Piperacillin Sod/Tazobactam (Sod 3.375 gm/ Sodium Chloride) 50 mls @ 100 mls/ hr IV Q6HR [facility] Stop: 08/04/17 17:59 Last Admin: 06/06/17 18:26 Dose: 100 mls/hr Vancomycin HCl 1.25 gm/ Sodium (Chloride) 250 mls @ 165 mls/hr IV Q12H [facility] Stop: 08/05/17 09:59 Last Admin: 06/06/17 22:05 Dose: 165 mls/hr Lactobacillus Rhamnosus (Culturelle 15b) 1 each PO DAILY [facility] Stop: 08/05/17 08:59 Last Admin: 06/06/17 10:48 Dose: Not Given Lisinopril (Zestril) 5 mg PO HS JULIETA Stop: 08/04/17 20:59 Last Admin: 06/06/17 21:01 Dose: Not Given Lorazepam (Ativan) 1 mg IVP Q2HR PRN; Protocol PRN Reason: Agitation Stop: 08/03/17 12:44 Last Admin: 06/06/17 05:18 Dose: 1 mg Methylprednisolone Sodium Succinate (Solu-Medrol) 40 mg IVP Q6HR JULIETA Stop: 08/03/17 12:44 Last Admin: 06/06/17 17:18 Dose: 40 mg Miscellaneous (Vancomycin Iv Per Pharmacy) 1 [facility] PRN PRN PRN Reason: PROTOCOL Stop: 08/03/17 12:44 Miscellaneous (Probiotic Screen) 1 [facility] PRN PRN PRN Reason: PROTOCOL Stop: 08/04/17 10:29 Pantoprazole Sodium (Protonix) 40 mg IVP DAILY JULIETA Stop: 08/04/17 08:59 Last Admin: 06/06/17 09:05 Dose: 40 mg HEENT: NC/AT, PERRLA, EOMI, throat clear Neck: Supple, No JVD, No thyromegaly, No LAD Lungs: congested Cardiovascular: RRR, Normal S1, Normal S2, without murmur Abdomen: non-tender, tender, non-distended Extremities: clear Neurological: no change - Procedures Procedures: Procedures Procedure Code Date COLONOSCOPY 45.23 05/25/00 DIAGNOSTIC COLONOSCOPY 93612 05/25/00 DOPPLER COLOR FLOW ADD-ON 66420 11/03/99 DOPPLER ECHO EXAM HEART 65826 11/03/99 DX ULTRASOUND-HEART 88.72 11/03/99 ELECTROCARDIOGRAM 89.52 11/03/99 ELECTROCARDIOGRAM COMPLETE 89713 11/03/99 TTE W/O DOPPLER COMPLETE 83518 11/03/99 Internal Medicine Assmt/Plan - Assessment Assessment: 1.PNEUMONIA. 2.COPD EXACERBATION. 3.CHF. 4.ACUTE REPIRATORY FAILURE. - Plan Plan: CONTINUE ON CURRENT MEDICATION AND DIET Nutritional Asmnt/Malnutr-PDOC - Dietary Evaluation Malnutrition Findings (Please click <Entered> for more info): Nutritional Asmnt/Malnutrition Start: 06/06/17 09: 18 Text: Status: Complete Freq: Document 06/06/17 11:50 MMULHERN (Rec: 06/06/17 12:00 JUAN CARLOS PEACOCK- [id number]) Nutritional Asmnt/Malnutrition Patient General Information Nutritional Screening High Risk Consult Diagnosis PNA, Acute Respiratory Failure Pertinent Medical Hx/Surgical Hx COPD Subjective Information Patient intubated without initiation of enteral feedings . Current Diet Order/ Nutrition Support None Patient / S.O Not Indicated Pertinent Medications Os-tai, Culturelle, Solu- medrol, Protonix, Abx, [place] Chloride Pertinent Labs 06/05: Ca 8.4, ALT 56 ( decreased), BNP 810, Albumin 3 (Decreased) Nutritional Hx/Data Height 1.7 m Height (Calculated Centimeters) 170.2 Current Weight (lbs) 68.946 kg Weight (Calculated Kilograms) 68.9 Weight (Calculated Grams) 36895.0 [place] Body Weight 148 % [place] Body Weight 102 Body Mass Index (BMI) 23.8 Recent Weight Change No Weight Status Approriate GI Symptoms GI Symptoms None Last BM None noted in EMR since admission Difficult in: None Food Allergies No: None noted Cultural/Ethnic/Mandaeism Belief None indicated Usual diet at home Unknown Skin Integrity/Comment: Intact, Abraham 15 Current %PO Negligible < 25% Estimated Nutritional Goals BEE in Kcals: Using Current wt Calories/Kcals/Kg 69kg Current body weight Kcals Calculated ~2153-2275 kcal/day Protein: Using Current wt Protein g/k-1.2 gm/day Protein Calculated ~70-80 gm/day Fluid: ml ~3657-4579 ml/day ( 1 ml/kcal) Nutritional Problem 1. Problem Problem Inadequate energy intake related to Etiology intubation without initiation of enteral nutrition as evidenced by Signs/Symptoms: meeting <25% of estimated nutrient needs at this time. Intervention/Recommendation Comments 1. If patient will remain intubated, when medically appropriate start tube feeding , Nutren Pulmonary at 50 ml/hr to provide 1200 ml volume, 1800 kcal, 81 gm protein, 938 ml free water. Free water flushes 100 ml q 4 hours to better meet fluid needs. Expected Outcomes/Goals Expected Outcomes/Goals Patient receives nutrition within 24 hours, skin integrity remains WNL, Nutrition related labs normalize, weight stable
[2017-06-07] MEDS: methylPREDNISolone SS 40 mg Vial IVP SCH ×4 (00:46→18:03)
[2017-06-07] MEDS: Albuterol/Ipratropium Neb 3 ML AERS HHN SCH ×4 (01:27→21:09)
--- NOTE | 2017-06-07 02:52 | Consultation ---
DATE OF CONSULTATION: This 77-year-old male was seen and examined at the courtesy of Dr. Santana. The patient was admitted here with a diagnosis of acute respiratory failure, pneumonia, chronic obstructive pulmonary disease. The patient was found to have congestive heart failure, also the patient has history of coronary artery disease status post coronary artery bypass surgery. No proper history available from the patient. On reviewing the chart, pH was 7.30, pCO2 was 74, pO2 of 150. Sputum showed Pseudomonas aeruginosa. Magnesium was 2. Sodium was 139, potassium 4.8, chloride 102, CO2 34.2, BUN 17, creatinine 0.6, glucose 156. WBC count was 7.6, hemoglobin 11.1, hematocrit 33.0, platelet count was 221. LDL cholesterol was 95. Initial WBC count was 16.9. 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 IMPRESSION: Acute respiratory failure, pneumonia, probably pseudomonas; congestive heart failure; coronary artery disease status post coronary artery bypass surgery. Suggest to continue present management. Apparently ____ has been extubated. He is to continue diuretics, potassium supplement, nitrates. If the pulmonary status improves, beta elida may be added but in the meantime the patient should be on aspirin, statins and JULIANA inhibitors. Echocardiogram was told to be done, I am not sure it is done or not. Further recommendation will be made depending on the rest of the tests available. Dr. Yara Dodson will be following him from the morning. JOB# [id number]
[2017-06-07] MEDS: D5-0.9NS w/KCL 20mEq 1,000 ML IV SCH ×2 (06:12→22:05)
[2017-06-07 09:31] LABS: HEMATOCRIT 39.2 % (41.0-60); HEMOGLOBIN 13.1 gm/dL (12-16); LYMPHOCYTE ABSOLUTE 0.4 Th/cmm (1.5-3.0); MEAN CELL VOLUME 99.1 fl (80-99); MEAN CORPUSCULAR HGB CONC 33.3 pg (28.0-36.0); MEAN PLATELET VOLUME 7.9 fl; MONOCYTE ABSOLUTE 0.2 Th/cmm (0.3-1.0); NEUTROPHILE ABSOLUTE 13.9 Th/cmm (1.8-8.0); RED BLOOD COUNT 3.96 Mil/cmm (3.80-5.80); RED CELL DISTRIBUTION WIDTH 14.1 % (11.5-20.0)
[2017-06-07 09:33] LABS: WHITE BLOOD COUNT 14.5 Th/cmm (4.8-10.8)
[2017-06-07 09:34] LABS: PLATELET COUNT 271 Th/cmm (150-400)
[2017-06-07 09:51] LABS: ANION GAP 9.5 (7.0-16.0); BUN - UREA NITROGEN 20 mg/dL (7-25); CARBON DIOXIDE 30.6 mEq/L (21.0-31.0); CHLORIDE 107 mEq/L (98-107); CREATININE - SERUM 0.8 mg/dL (0.7-1.3); GLUCOSE 153 mg/dL (70-105); POTASSIUM SERUM 4.1 mEq/L (3.5-5.1); SODIUM SERUM 143 mEq/L (136-145)
[2017-06-07] MEDS: Enoxaparin 40 mg/0.4 mL 0.4mL Syr SUBQ SCH ×2 (10:10→21:43)
[2017-06-07] MEDS: Lactobacillus Rhamnosus GG 15 Billion CFU CAP.SPRINK PO SCH (10:11)
[2017-06-07] MEDS: Atorvastatin Calcium 10 MG TAB PO SCH (10:12)
[2017-06-07] MEDS: Aspirin 81mg Chewable Tab PO SCH (10:12)
--- NOTE | 2017-06-07 13:59 | Cardiology ---
06/04/2017 ECHOCARDIOGRAM REPORT The patient of Dr. Santana. M-MODE ECHOCARDIOGRAM: Mitral valve, anterior leaflet of mitral valve shows normal excursion, EF velocity. Posterior leaflet of mitral valve shows normal excursion. Left ventricular posterior shows increased thickness, normal excursion. Interventricular septum shows increased thickness, normal excursion, hypertrophy of the left ventricle, ejection fraction 62%. Left atrium normal. Aortic root shows normal dimension, normal excursion of aortic leaflets. CONCLUSION: Hypertrophy of the left ventricle, ejection fraction 62%. 2D ECHO: Long axis view showed normal sized left ventricle with hypertrophy of the left ventricle. Left atrium normal. Aortic root shows normal dimension, normal excursion of aortic leaflets. Short axis view of mitral valve normal. Short axis view of aortic valve normal. Apical four chamber view showed normal sized left ventricle, left atrium, right ventricle, right atrium, and mitral valve. Ejection fraction 62%. CONCLUSION: Hypertrophy of the left ventricle, ejection fraction 62%. Doppler study shows trace tricuspid regurgitation, mild mitral regurgitation. [facility]# [id number]
[2017-06-07 16:16] LABS: pH 7.35 (7.35-7.45)
[2017-06-07 16:18] LABS: ALLEN TEST Positive
[2017-06-07] MEDS: Levofloxacin 250mg/50mL 250 MG/50 ML BAG IV SCH (18:01)
--- NOTE | 2017-06-07 19:36 | Internal Medicine Prog Note ---
Internal Medicine Subjective - Subjective Service Date: 06/07/17 Patient seen and examined:: with staff (HE FEELS BETTER,LESS SOB.) Patient is:: awake, non-verbal, in bed Patient Complaints of:: congestion Per staff patient has:: no adverse event Internal Medicine Objective - Results Result Diagrams: 06/07/17 09:20 06/07/17 09:20 Recent Labs: Laboratory Last Values WBC 14.5 Th/cmm (4.8-10.8) H D 06/07/17 09:20 RBC 3.96 Mil/cmm (3.80-5.80) 06/07/17 09:20 Hgb 13.1 gm/dL (12-16) 06/07/17 09:20 Hct 39.2 % (41.0-60) L D 06/07/17 09:20 MCV 99.1 fl (80-99) H 06/07/17 09:20 MCH 33.0 pg (27.0-31.0) H 06/07/17 09:20 MCHC Differential 33.3 pg (28.0-36.0) 06/07/17 09:20 RDW 14.1 % (11.5-20.0) 06/07/17 09:20 Plt Count 271 Th/cmm (150-400) D 06/07/17 09:20 MPV 7.9 fl 06/07/17 09:20 Band Neutrophils % 3 % (0-10) 06/04/17 09:10 Neutrophils (Manual) 83 % (40-80) H 06/04/17 09:10 Lymphocytes 8 % (20-50) L 06/04/17 09:10 Monocytes 3 % (2-10) 06/04/17 09:10 Eosinophils 3 % (0-5) 06/04/17 09:10 PT 11.1 SECONDS (9.5-11.5) 06/04/17 09:10 INR 1.07 (0.5-1.4) 06/04/17 09:10 PTT (Actin FS) 22.5 SECONDS (26.0-38.0) L 06/04/17 09:10 D-Dimer 465 ng/mL (100-400) H 06/04/17 09:10 Specimen Source Arterial 06/07/17 15:35 Sample Site Right Radial 06/07/17 15:35 pH 7.35 (7.35-7.45) 06/07/17 15:35 pCO2 65.0 mmHg (35.0-45.0) H* 06/07/17 15:35 pO2 63.0 mmHg (80.0-100.0) L 06/07/17 15:35 HCO3 31.1 mEq/L (20.0-26.0) H 06/07/17 15:35 Base Excess 8.1 mEq/L (-3.0-3.0) H 06/07/17 15:35 O2 Saturation 91.0 % (92.0-100.0) L 06/07/17 15:35 Guy Test Positive 06/07/17 15:35 Vent Rate N/A 06/07/17 15:35 Inspired O2 32 06/07/17 15:35 Tidal Volume N/A 06/07/17 15:35 PEEP N/A 06/07/17 15:35 Pressure (ins/psv/peep) N/A 06/07/17 15:35 Critical Value DM 06/07/17 15:35 Sodium 143 mEq/L (136-145) 06/07/17 09:20 Potassium 4.1 mEq/L (3.5-5.1) 06/07/17 09:20 Chloride 107 mEq/L (98-107) 06/07/17 09:20 Carbon Dioxide 30.6 mEq/L (21.0-31.0) 06/07/17 09:20 Anion Gap 9.5 (7.0-16.0) 06/07/17 09:20 BUN 20 mg/dL (7-25) 06/07/17 09:20 Creatinine 0.8 mg/dL (0.7-1.3) 06/07/17 09:20 Est GFR ( Amer) TNP 06/07/17 09:20 Est GFR (Non-Af Amer) TNP 06/07/17 09:20 BUN/Creatinine Ratio 25.0 06/07/17 09:20 Glucose 153 mg/dL (70-105) H 06/07/17 09:20 Whole Bld Lactic Acid 1.34 mmol/L (0.60-1.99) 06/04/17 09:10 Calcium 9.0 mg/dL (8.6-10.3) 06/07/17 09:20 Magnesium 2.0 mg/dL (1.9-2.7) 06/05/17 15:47 Total Bilirubin 0.5 mg/dL (0.3-1.0) 06/05/17 05:15 AST 19 U/L (13-39) 06/05/17 05:15 ALT 56 U/L (7-52) H 06/05/17 05:15 Alkaline Phosphatase 54 U/L (34-104) 06/05/17 05:15 Creatine Kinase 53 U/L (30-223) 06/04/17 09:10 Troponin I 0.04 ng/mL (0.01-0.05) 06/04/17 09:10 B-Natriuretic Peptide 810.0 pg/mL (5.0-100.0) H 06/04/17 09:10 Total Protein 5.2 gm/dL (6.0-8.3) L 06/05/17 05:15 Albumin 3.0 gm/dL (4.2-5.5) L 06/05/17 05:15 Globulin 2.2 gm/dL 06/05/17 05:15 Albumin/Globulin Ratio 1.4 (1.0-1.8) 06/05/17 05:15 Triglycerides 76 mg/dL (<150) 06/04/17 09:10 Cholesterol 177 mg/dL (<200) 06/04/17 09:10 LDL Cholesterol Direct 95 mg/dL (75-193) 06/04/17 09:10 HDL Cholesterol 75 mg/dL (23-92) 06/04/17 09:10 Urine Source MIDSTREAM 06/04/17 10:20 Urine Color YELLOW 06/04/17 10:20 Urine Clarity HAZY (CLEAR) 06/04/17 10:20 Urine pH 6.0 (4.6 - 8.0) 06/04/17 10:20 Ur Specific [place] >= 1.030 (1.005-1.030) 06/04/17 10:20 Urine Protein 30 mg/dL (NEGATIVE) H 06/04/17 10:20 Urine Glucose (UA) NEGATIVE mg/dL (NEGATIVE) 06/04/17 10:20 Urine Ketones NEGATIVE mg/dL (NEGATIVE) 06/04/17 10:20 Urine Blood NEGATIVE (NEGATIVE) 06/04/17 10:20 Urine Nitrate NEGATIVE (NEGATIVE) 06/04/17 10:20 Urine Bilirubin NEGATIVE (NEGATIVE) 06/04/17 10:20 Urine Urobilinogen 0.2 E.U./dL (0.2 - 1.0) 06/04/17 10:20 Ur Leukocyte Esterase NEGATIVE (NEGATIVE) 06/04/17 10:20 Urine RBC 0-2 /hpf (0-5) H 06/04/17 10:20 Urine WBC 2-5 /hpf (0-5) H 06/04/17 10:20 Ur Epithelial Cells FEW /lpf (FEW) 06/04/17 10:20 Urine Bacteria FEW /hpf (NONE SEEN) 06/04/17 10:20 Fine Granular Casts 0-2 /lpf (NONE SEEN) H 06/04/17 10:20 Urine Mucus FEW /lpf (FEW) 06/04/17 10:20 Vancomycin Trough 21.8 ug/mL (10-20) H 06/07/17 09:20 Influenza A (Rapid) NEG FOR INF A 06/04/17 16:55 Influenza B (Rapid) NEG FOR INF B 06/04/17 16:55 - Physical Exam Vitals and I&O: Vital Signs Temp 97.3 F 06/07/17 18:00 Pulse 97 06/07/17 18:00 Resp 26 06/07/17 18:00 BP 136/62 06/07/17 18:00 Pulse Ox 96 06/07/17 18:00 Intake & Output 06/07/17 06/07/17 06/08/17 06:59 18:59 06:59 Intake Total 1350 300 Output Total 650 750 Balance 700 -450 Weight (lbs) 73.255 kg 73.255 kg Intake: Intake, IV Amount 1350 300 D5-0.9NS w/KCL 20mEq 1, 1000 000 ml @ 100 mls/hr IV . Q10H [facility] Rx#:[id number] Piperacillin Sodium/ 100 50 Tazobact 3.375 gm In Sodium Chloride 0.9% 50 ml @ 100 mls/hr IV Q6HR [facility] Rx#:[id number] Vancomycin HCl 1.25 gm In 250 250 Sodium Chloride 0.9% 250 ml @ 165 mls/hr IV Q12H [facility] Rx#:[id number] Oral 0 Output: Urine 650 750 Other: # Bowel Movements 0 Stool Characteristics Hard Active Medications: Current Medications Acetaminophen (Tylenol 650mg Supp) 650 mg RC Q6H PRN PRN Reason: Fever >100 Stop: 08/03/17 12:44 Albuterol/Ipratropium (Duoneb Neb) 3 ml HHN Q6H [facility] Stop: 08/03/17 12:44 Last Admin: 06/07/17 13:56 Dose: 3 ml Aspirin (Aspirin Chewable) 81 mg PO DAILY [facility] Stop: 08/05/17 08:59 Last Admin: 06/07/17 10:12 Dose: Not Given Atorvastatin Calcium (Lipitor) 10 mg PO DAILY [facility] PRN Reason: Protocol Stop: 08/06/17 08:59 Last Admin: 06/07/17 10:12 Dose: Not Given Calcium Carbonate (Os-Tai) 500 mg PO DAILY [facility] Stop: 08/05/17 08:59 Last Admin: 06/07/17 10:12 Dose: Not Given Enoxaparin Sodium (Lovenox) 40 mg SUBQ Q12HR [facility] Stop: 08/03/17 20:59 Last Admin: 06/07/17 10:10 Dose: 40 mg Potassium Chloride/Dextrose/Sod Cl (D5-0.9ns W/Kcl 20meq) 1,000 mls @ 100 mls/ hr IV .Q10H [facility] Stop: 08/03/17 12:44 Last Admin: 06/07/17 06:12 Dose: 100 mls/hr Levofloxacin (Levaquin Pb) 250 mg in 50 mls @ 50 mls/hr IV Q24HR [facility] Stop: 08/03/17 16:59 Last Admin: 06/07/17 18:01 Dose: 50 mls/hr Piperacillin Sod/Tazobactam (Sod 3.375 gm/ Sodium Chloride) 50 mls @ 100 mls/ hr IV Q6HR [facility] Stop: 08/04/17 17:59 Last Admin: 06/07/17 18:27 Dose: 100 mls/hr Vancomycin HCl 1.25 gm/ Sodium (Chloride) 250 mls @ 165 mls/hr IV Q12H [facility] Stop: 08/05/17 09:59 Last Infusion: 06/07/17 13:33 Dose: Infused Lactobacillus Rhamnosus (Culturelle 15b) 1 each PO DAILY [facility] Stop: 08/05/17 08:59 Last Admin: 06/07/17 10:11 Dose: Not Given Lisinopril (Zestril) 5 mg PO HS [facility] Stop: 08/04/17 20:59 Last Admin: 06/06/17 21:01 Dose: Not Given Lorazepam (Ativan) 1 mg IVP Q2HR PRN; Protocol PRN Reason: Agitation Stop: 08/03/17 12:44 Last Admin: 06/06/17 05:18 Dose: 1 mg Methylprednisolone Sodium Succinate (Solu-Medrol) 40 mg IVP Q6HR [facility] Stop: 08/03/17 12:44 Last Admin: 06/07/17 18:03 Dose: 40 mg Miscellaneous (Vancomycin Iv Per Pharmacy) 1 ea PRN PRN PRN Reason: PROTOCOL Stop: 08/03/17 12:44 Miscellaneous (Probiotic Screen) 1 [facility] PRN PRN PRN Reason: PROTOCOL Stop: 08/04/17 10:29 Pantoprazole Sodium (Protonix) 40 mg IVP DAILY [facility] Stop: 08/04/17 08:59 Last Admin: 06/07/17 10:10 Dose: 40 mg General: alert HEENT: NC/AT, PERRLA, EOMI, throat clear Neck: Supple, No JVD, No thyromegaly, No LAD Lungs: congested Cardiovascular: RRR, Normal S1, Normal S2, without murmur Abdomen: non-tender, tender, non-distended Extremities: clear Neurological: no change - Procedures Procedures: Procedures Procedure Code Date COLONOSCOPY 45.23 05/25/00 DIAGNOSTIC COLONOSCOPY 20598 05/25/00 DOPPLER COLOR FLOW ADD-ON 66347 11/03/99 DOPPLER ECHO EXAM HEART 77538 11/03/99 DX ULTRASOUND-HEART 88.72 11/03/99 ELECTROCARDIOGRAM 89.52 11/03/99 ELECTROCARDIOGRAM COMPLETE 04010 11/03/99 INSERT EMERGENCY AIRWAY 95474 06/04/17 INSERTION OF ENDOTRACHEAL AIRWAY INTO TRACHEA, VIA OPENING [id number] 06/04/17 RESPIRATORY VENTILATION, 24-96 CONSECUTIVE HOURS [id number] 06/04/17 TTE W/O DOPPLER COMPLETE 11589 11/03/99 VENT MGMT INPAT INIT DAY 59086 06/04/17 VENT MGMT INPAT SUBQ DAY 10783 06/04/17 Internal Medicine Assmt/Plan - Assessment Assessment: 1.PNEUMONIA. 2.COPD EXACERBATION. 3.CHF. 4.ACUTE REPIRATORY FAILURE.OFF VENT. - Plan Plan: CONTINUE ON CURRENT MEDICATION AND DIET.SWALLOW EVALUATION. Nutritional Asmnt/Malnutr-PDOC - Dietary Evaluation Malnutrition Findings (Please click <Entered> for more info): Nutritional Asmnt/Malnutrition Start: 06/06/17 09: 18 Text: Status: Complete Freq: Document 06/06/17 11:50 MMULALLEGRA (Rec: 06/06/17 12:00 MMULHERVini [place]ACOCK- [email or web address]) Nutritional Asmnt/Malnutrition Patient General Information Nutritional Screening High Risk Consult Diagnosis PNA, Acute Respiratory Failure Pertinent Medical Hx/Surgical Hx COPD Subjective Information Patient intubated without initiation of enteral feedings . Current Diet Order/ Nutrition Support None Patient / S.O Not Indicated Pertinent Medications Os-tai, Culturelle, Solu- medrol, Protonix, Abx, Potassiu Chloride Pertinent Labs 06/05: Ca 8.4, ALT 56 ( decreased), BNP 810, Albumin 3 (Decreased) Nutritional Hx/Data Height 1.7 m Height (Calculated Centimeters) 170.2 Current Weight (lbs) 68.946 kg Weight (Calculated Kilograms) 68.9 Weight (Calculated Grams) 42362.0 [place] Body Weight 148 % [place] Body Weight 102 Body Mass Index (BMI) 23.8 Recent Weight Change No Weight Status Approriate GI Symptoms GI Symptoms None Last BM None noted in EMR since admission Difficult in: None Food Allergies No: None noted Cultural/Ethnic/[employer]yb[employer]ian Belief None indicated Usual diet at home Unknown Skin Integrity/Comment: Intact, Abraham 15 Current %PO Negligible < 25% Estimated Nutritional Goals BEE in Kcals: Using Current wt Calories/Kcals/Kg 69kg Current body weight Kcals Calculated ~6173-5968 kcal/day Protein: Using Current wt Protein g/k-1.2 gm/day Protein Calculated ~70-80 gm/day Fluid: ml ~1378-1650 ml/day ( 1 ml/kcal) Nutritional Problem 1. Problem Problem Inadequate energy intake related to Etiology intubation without initiation of enteral nutrition as evidenced by Signs/Symptoms: meeting <25% of estimated nutrient needs at this time. Intervention/Recommendation Comments 1. If patient will remain intubated, when medically appropriate start tube feeding , Nutren Pulmonary at 50 ml/hr to provide 1200 ml volume, 1800 kcal, 81 gm protein, 938 ml free water. Free water flushes 100 ml q 4 hours to better meet fluid needs. Expected Outcomes/Goals Expected Outcomes/Goals Patient receives nutrition within 24 hours, skin integrity remains WNL, Nutrition related labs normalize, weight stable
[2017-06-08] MEDS ORDERED: Albuterol/Ipratropium Neb 3 ML AERS HHN ONE (00:45)
[2017-06-08] MEDS: Albuterol/Ipratropium Neb 3 ML AERS HHN SCH ×5 (01:00→19:58)
[2017-06-08] MEDS: methylPREDNISolone SS 40 mg Vial IVP SCH ×4 (01:25→20:02)
[2017-06-08] MEDS: Enoxaparin 40 mg/0.4 mL 0.4mL Syr SUBQ SCH ×2 (08:54→20:41)
[2017-06-08] MEDS: Atorvastatin Calcium 10 MG TAB PO SCH (08:55)
[2017-06-08] MEDS: Aspirin 81mg Chewable Tab PO SCH (08:55)
[2017-06-08] MEDS: Lactobacillus Rhamnosus GG 15 Billion CFU CAP.SPRINK PO SCH (08:55)
--- NOTE | 2017-06-08 09:46 | Internal Medicine Prog Note ---
Internal Medicine Subjective - Subjective Service Date: 06/08/17 Patient seen and examined:: with staff (he passed swallow evaluation) Patient is:: awake, non-verbal, in bed Patient Complaints of:: congestion Per staff patient has:: no adverse event Internal Medicine Objective - Results Result Diagrams: 06/07/17 09:20 06/07/17 09:20 Recent Labs: Laboratory Last Values WBC 14.5 Th/cmm (4.8-10.8) H D 06/07/17 09:20 RBC 3.96 Mil/cmm (3.80-5.80) 06/07/17 09:20 Hgb 13.1 gm/dL (12-16) 06/07/17 09:20 Hct 39.2 % (41.0-60) L D 06/07/17 09:20 MCV 99.1 fl (80-99) H 06/07/17 09:20 MCH 33.0 pg (27.0-31.0) H 06/07/17 09:20 MCHC Differential 33.3 pg (28.0-36.0) 06/07/17 09:20 RDW 14.1 % (11.5-20.0) 06/07/17 09:20 Plt Count 271 Th/cmm (150-400) D 06/07/17 09:20 MPV 7.9 fl 06/07/17 09:20 Band Neutrophils % 3 % (0-10) 06/04/17 09:10 Neutrophils (Manual) 83 % (40-80) H 06/04/17 09:10 Lymphocytes 8 % (20-50) L 06/04/17 09:10 Monocytes 3 % (2-10) 06/04/17 09:10 Eosinophils 3 % (0-5) 06/04/17 09:10 PT 11.1 SECONDS (9.5-11.5) 06/04/17 09:10 INR 1.07 (0.5-1.4) 06/04/17 09:10 PTT (Actin FS) 22.5 SECONDS (26.0-38.0) L 06/04/17 09:10 D-Dimer 465 ng/mL (100-400) H 06/04/17 09:10 Specimen Source Arterial 06/07/17 15:35 Sample Site Right Radial 06/07/17 15:35 pH 7.35 (7.35-7.45) 06/07/17 15:35 pCO2 65.0 mmHg (35.0-45.0) H* 06/07/17 15:35 pO2 63.0 mmHg (80.0-100.0) L 06/07/17 15:35 HCO3 31.1 mEq/L (20.0-26.0) H 06/07/17 15:35 Base Excess 8.1 mEq/L (-3.0-3.0) H 06/07/17 15:35 O2 Saturation 91.0 % (92.0-100.0) L 06/07/17 15:35 Guy Test Positive 06/07/17 15:35 Vent Rate N/A 06/07/17 15:35 Inspired O2 32 06/07/17 15:35 Tidal Volume N/A 06/07/17 15:35 PEEP N/A 06/07/17 15:35 Pressure (ins/psv/peep) N/A 06/07/17 15:35 Critical Value DM 06/07/17 15:35 Sodium 143 mEq/L (136-145) 06/07/17 09:20 Potassium 4.1 mEq/L (3.5-5.1) 06/07/17 09:20 Chloride 107 mEq/L (98-107) 06/07/17 09:20 Carbon Dioxide 30.6 mEq/L (21.0-31.0) 06/07/17 09:20 Anion Gap 9.5 (7.0-16.0) 06/07/17 09:20 BUN 20 mg/dL (7-25) 06/07/17 09:20 Creatinine 0.8 mg/dL (0.7-1.3) 06/07/17 09:20 Est GFR ( Amer) TNP 06/07/17 09:20 Est GFR (Non-Af Amer) TNP 06/07/17 09:20 BUN/Creatinine Ratio 25.0 06/07/17 09:20 Glucose 153 mg/dL (70-105) H 06/07/17 09:20 Whole Bld Lactic Acid 1.34 mmol/L (0.60-1.99) 06/04/17 09:10 Calcium 9.0 mg/dL (8.6-10.3) 06/07/17 09:20 Magnesium 2.0 mg/dL (1.9-2.7) 06/05/17 15:47 Total Bilirubin 0.5 mg/dL (0.3-1.0) 06/05/17 05:15 AST 19 U/L (13-39) 06/05/17 05:15 ALT 56 U/L (7-52) H 06/05/17 05:15 Alkaline Phosphatase 54 U/L (34-104) 06/05/17 05:15 Creatine Kinase 53 U/L (30-223) 06/04/17 09:10 Troponin I 0.04 ng/mL (0.01-0.05) 06/04/17 09:10 B-Natriuretic Peptide 810.0 pg/mL (5.0-100.0) H 06/04/17 09:10 Total Protein 5.2 gm/dL (6.0-8.3) L 06/05/17 05:15 Albumin 3.0 gm/dL (4.2-5.5) L 06/05/17 05:15 Globulin 2.2 gm/dL 06/05/17 05:15 Albumin/Globulin Ratio 1.4 (1.0-1.8) 06/05/17 05:15 Triglycerides 76 mg/dL (<150) 06/04/17 09:10 Cholesterol 177 mg/dL (<200) 06/04/17 09:10 LDL Cholesterol Direct 95 mg/dL (75-193) 06/04/17 09:10 HDL Cholesterol 75 mg/dL (23-92) 06/04/17 09:10 Urine Source MIDSTREAM 06/04/17 10:20 Urine Color YELLOW 06/04/17 10:20 Urine Clarity HAZY (CLEAR) 06/04/17 10:20 Urine pH 6.0 (4.6 - 8.0) 06/04/17 10:20 Ur Specific [place] >= 1.030 (1.005-1.030) 06/04/17 10:20 Urine Protein 30 mg/dL (NEGATIVE) H 06/04/17 10:20 Urine Glucose (UA) NEGATIVE mg/dL (NEGATIVE) 06/04/17 10:20 Urine Ketones NEGATIVE mg/dL (NEGATIVE) 06/04/17 10:20 Urine Blood NEGATIVE (NEGATIVE) 06/04/17 10:20 Urine Nitrate NEGATIVE (NEGATIVE) 06/04/17 10:20 Urine Bilirubin NEGATIVE (NEGATIVE) 06/04/17 10:20 Urine Urobilinogen 0.2 E.U./dL (0.2 - 1.0) 06/04/17 10:20 Ur Leukocyte Esterase NEGATIVE (NEGATIVE) 06/04/17 10:20 Urine RBC 0-2 /hpf (0-5) H 06/04/17 10:20 Urine WBC 2-5 /hpf (0-5) H 06/04/17 10:20 Ur Epithelial Cells FEW /lpf (FEW) 06/04/17 10:20 Urine Bacteria FEW /hpf (NONE SEEN) 06/04/17 10:20 Fine Granular Casts 0-2 /lpf (NONE SEEN) H 06/04/17 10:20 Urine Mucus FEW /lpf (FEW) 06/04/17 10:20 Vancomycin Trough 21.8 ug/mL (10-20) H 06/07/17 09:20 Influenza A (Rapid) NEG FOR INF A 06/04/17 16:55 Influenza B (Rapid) NEG FOR INF B 06/04/17 16:55 - Physical Exam Vitals and I&O: Vital Signs Temp 97.6 F 06/08/17 04:00 Pulse 69 06/08/17 07:29 Resp 20 06/08/17 07:29 BP 100/80 06/08/17 05:00 Pulse Ox 100 06/08/17 07:29 Intake & Output 06/07/17 06/08/17 06/08/17 18:59 06:59 18:59 Intake Total 1350 1151.667 Output Total 750 875 Balance 600 276.667 Weight (lbs) 73.255 kg 73.255 kg Intake: Intake, IV Amount 1350 1151.667 D5-0.9NS w/KCL 20mEq 1, 1000 801.667 000 ml @ 100 mls/hr IV . Q10H [facility] Rx#:[id number] Piperacillin Sodium/ 100 100 Tazobact 3.375 gm In Sodium Chloride 0.9% 50 ml @ 100 mls/hr IV Q6HR [facility] Rx#:[id number] Vancomycin HCl 1.25 gm In 250 250 Sodium Chloride 0.9% 250 ml @ 165 mls/hr IV Q12H [facility] Rx#:[id number] Oral 0 Output: Urine 750 875 Other: # Bowel Movements 0 0 Active Medications: Current Medications Acetaminophen (Tylenol 650mg Supp) 650 mg RC Q6H PRN PRN Reason: Fever >100 Stop: 08/03/17 12:44 Albuterol/Ipratropium (Duoneb Neb) 3 ml HHN Q6H [facility] Stop: 08/03/17 12:44 Last Admin: 06/08/17 07:29 Dose: 3 ml Aspirin (Aspirin Chewable) 81 mg PO DAILY [facility] Stop: 08/05/17 08:59 Last Admin: 06/08/17 08:55 Dose: 81 mg Atorvastatin Calcium (Lipitor) 10 mg PO DAILY [facility] PRN Reason: Protocol Stop: 08/06/17 08:59 Last Admin: 06/08/17 08:55 Dose: 10 mg Calcium Carbonate (Os-Tai) 500 mg PO DAILY [facility] Stop: 08/05/17 08:59 Last Admin: 06/08/17 08:55 Dose: 500 mg Enoxaparin Sodium (Lovenox) 40 mg SUBQ Q12HR [facility] Stop: 08/03/17 20:59 Last Admin: 06/08/17 08:54 Dose: 40 mg Potassium Chloride/Dextrose/Sod Cl (D5-0.9ns W/Kcl 20meq) 1,000 mls @ 100 mls/ hr IV .Q10H [facility] Stop: 08/03/17 12:44 Last Infusion: 06/08/17 06:06 Dose: 100 mls/hr Levofloxacin (Levaquin Pb) 250 mg in 50 mls @ 50 mls/hr IV Q24HR [facility] Stop: 08/03/17 16:59 Last Admin: 06/07/17 18:01 Dose: 50 mls/hr Piperacillin Sod/Tazobactam (Sod 3.375 gm/ Sodium Chloride) 50 mls @ 100 mls/ hr IV Q6HR [facility] Stop: 08/04/17 17:59 Last Infusion: 06/08/17 06:47 Dose: Infused Vancomycin HCl 1.25 gm/ Sodium (Chloride) 250 mls @ 165 mls/hr IV Q12H [facility] Stop: 08/05/17 09:59 Last Infusion: 06/08/17 06:07 Dose: Infused Lactobacillus Rhamnosus (Culturelle 15b) 1 each PO DAILY [facility] Stop: 08/05/17 08:59 Last Admin: 06/08/17 08:55 Dose: 1 each Lisinopril (Zestril) 5 mg PO HS [facility] Stop: 08/04/17 20:59 Last Admin: 06/07/17 21:43 Dose: Not Given Lorazepam (Ativan) 1 mg IVP Q2HR PRN; Protocol PRN Reason: Agitation Stop: 08/03/17 12:44 Last Admin: 06/06/17 05:18 Dose: 1 mg Methylprednisolone Sodium Succinate (Solu-Medrol) 40 mg IVP Q6HR [facility] Stop: 08/03/17 12:44 Last Admin: 06/08/17 06:34 Dose: 40 mg Miscellaneous (Vancomycin Iv Per Pharmacy) 1 ea PRN PRN PRN Reason: PROTOCOL Stop: 08/03/17 12:44 Miscellaneous (Probiotic Screen) 1 [facility] PRN PRN PRN Reason: PROTOCOL Stop: 08/04/17 10:29 Pantoprazole Sodium (Protonix) 40 mg IVP DAILY [facility] Stop: 08/04/17 08:59 Last Admin: 06/08/17 08:54 Dose: 40 mg General: alert HEENT: NC/AT, PERRLA, EOMI, throat clear Neck: Supple, No JVD, No thyromegaly, No LAD Lungs: congested Cardiovascular: RRR, Normal S1, Normal S2, without murmur Abdomen: non-tender, tender, non-distended Extremities: clear Neurological: no change - Procedures Procedures: Procedures Procedure Code Date COLONOSCOPY 45.23 05/25/00 DIAGNOSTIC COLONOSCOPY 95365 05/25/00 DOPPLER COLOR FLOW ADD-ON 52559 11/03/99 DOPPLER ECHO EXAM HEART 08299 11/03/99 DX ULTRASOUND-HEART 88.72 11/03/99 ELECTROCARDIOGRAM 89.52 11/03/99 ELECTROCARDIOGRAM COMPLETE 14660 11/03/99 INSERT EMERGENCY AIRWAY 34788 06/04/17 INSERTION OF ENDOTRACHEAL AIRWAY INTO TRACHEA, VIA OPENING [id number] 06/04/17 RESPIRATORY VENTILATION, 24-96 CONSECUTIVE HOURS [id number] 06/04/17 TTE W/O DOPPLER COMPLETE 53934 11/03/99 VENT MGMT INPAT INIT DAY 92665 06/04/17 VENT MGMT INPAT SUBQ DAY 89733 06/04/17 Internal Medicine Assmt/Plan - Assessment Assessment: 1.PNEUMONIA. 2.COPD EXACERBATION. 3.CHF. 4.ACUTE REPIRATORY FAILURE.OFF VENT. - Plan Plan: CONTINUE ON CURRENT MEDICATION AND DIET.MECHANICAL SOFT DIET. Nutritional Asmnt/Malnutr-PDOC - Dietary Evaluation Malnutrition Findings (Please click <Entered> for more info): Nutritional Asmnt/Malnutrition Start: 06/06/17 09: 18 Text: Status: Complete Freq: Document 06/06/17 11:50 MMULALLEGRA (Rec: 06/06/17 12:00 MMULALLEGRA [place]- [email or web address]) Nutritional Asmnt/Malnutrition Patient General Information Nutritional Screening High Risk Consult Diagnosis PNA, Acute Respiratory Failure Pertinent Medical Hx/Surgical Hx COPD Subjective Information Patient intubated without initiation of enteral feedings . Current Diet Order/ Nutrition Support None Patient / S.O Not Indicated Pertinent Medications Os-tai, Culturelle, Solu- medrol, Protonix, Abx, Potassiu Chloride Pertinent Labs 06/05: Ca 8.4, ALT 56 ( decreased), BNP 810, Albumin 3 (Decreased) Nutritional Hx/Data Height 1.7 m Height (Calculated Centimeters) 170.2 Current Weight (lbs) 68.946 kg Weight (Calculated Kilograms) 68.9 Weight (Calculated Grams) 94120.0 [place] Body Weight 148 % [place] Body Weight 102 Body Mass Index (BMI) 23.8 Recent Weight Change No Weight Status Approriate GI Symptoms GI Symptoms None Last BM None noted in EMR since admission Difficult in: None Food Allergies No: None noted Cultural/Ethnic/Confucianism Belief None indicated Usual diet at home Unknown Skin Integrity/Comment: Abraham Menezes 15 Current %PO Negligible < 25% Estimated Nutritional Goals BEE in Kcals: Using Current wt Calories/Kcals/Kg 69kg Current body weight Kcals Calculated ~7462-3938 kcal/day Protein: Using Current wt Protein g/k-1.2 gm/day Protein Calculated ~70-80 gm/day Fluid: ml ~8753-9518 ml/day ( 1 ml/kcal) Nutritional Problem 1. Problem Problem Inadequate energy intake related to Etiology intubation without initiation of enteral nutrition as evidenced by Signs/Symptoms: meeting <25% of estimated nutrient needs at this time. Intervention/Recommendation Comments 1. If patient will remain intubated, when medically appropriate start tube feeding , Nutren Pulmonary at 50 ml/hr to provide 1200 ml volume, 1800 kcal, 81 gm protein, 938 ml free water. Free water flushes 100 ml q 4 hours to better meet fluid needs. Expected Outcomes/Goals Expected Outcomes/Goals Patient receives nutrition within 24 hours, skin integrity remains WNL, Nutrition related labs normalize, weight stable
[2017-06-08] MEDS: D5-0.9NS w/KCL 20mEq 1,000 ML IV SCH (15:02)
[2017-06-08] MEDS: Levofloxacin 250mg/50mL 250 MG/50 ML BAG IV SCH (18:06)
[2017-06-08] MEDS: Budesonide 0.5 Mg/2 mL Ud HHN SCH (19:58)
[2017-06-09] MEDS: methylPREDNISolone SS 40 mg Vial IVP SCH ×4 (00:23→19:03)
[2017-06-09] MEDS: Albuterol/Ipratropium Neb 3 ML AERS HHN SCH ×4 (01:21→19:06)
[2017-06-09 07:01] LABS: HEMOGLOBIN 11.1 gm/dL (12-16); LYMPHOCYTE ABSOLUTE 0.3 Th/cmm (1.5-3.0); MANUAL DIFF REQUIRED? YES; MEAN CELL VOLUME 99.1 fl (80-99); MEAN CORPUSCULAR HEMOGLOBIN 32.4 pg (27.0-31.0); MEAN CORPUSCULAR HGB CONC 32.7 pg (28.0-36.0); MEAN PLATELET VOLUME 8.6 fl; MONOCYTE ABSOLUTE 0.5 Th/cmm (0.3-1.0); NEUTROPHILE ABSOLUTE 12.2 Th/cmm (1.8-8.0); PLATELET COUNT 234 Th/cmm (150-400); RED BLOOD COUNT 3.42 Mil/cmm (3.80-5.80); RED CELL DISTRIBUTION WIDTH 14.5 % (11.5-20.0)
[2017-06-09 07:03] LABS: HEMATOCRIT 33.9 % (41.0-60)
[2017-06-09 07:06] LABS: ANION GAP 5.2 (7.0-16.0); BUN - UREA NITROGEN 23 mg/dL (7-25); CARBON DIOXIDE 39.4 mEq/L (21.0-31.0); CHLORIDE 104 mEq/L (98-107); CREATININE - SERUM 0.8 mg/dL (0.7-1.3); GLUCOSE 144 mg/dL (70-105); POTASSIUM SERUM 4.6 mEq/L (3.5-5.1); SODIUM SERUM 144 mEq/L (136-145)
[2017-06-09] MEDS: Budesonide 0.5 Mg/2 mL Ud HHN SCH ×2 (07:08→19:06)
[2017-06-09 08:47] LABS: TOTAL CELLS COUNTED 100
[2017-06-09 08:48] LABS: BAND NEUTROPHILE 1 % (0-10); LYMPHOCYTE 3 % (20-50); MONOCYTE 4 % (2-10); NEUTROPHILS 92 % (40-80); PLATELET ESTIMATE ADEQUATE (NORMAL)
[2017-06-09] MEDS: Lactobacillus Rhamnosus GG 15 Billion CFU CAP.SPRINK PO SCH (08:55)
[2017-06-09] MEDS: Atorvastatin Calcium 10 MG TAB PO SCH (08:55)
[2017-06-09] MEDS: Aspirin 81mg Chewable Tab PO SCH (08:55)
[2017-06-09] MEDS: Enoxaparin 40 mg/0.4 mL 0.4mL Syr SUBQ SCH ×2 (08:55→21:53)
[2017-06-09] MEDS: Levofloxacin 250mg/50mL 250 MG/50 ML BAG IV SCH (16:54)
--- NOTE | 2017-06-09 22:19 | Internal Medicine Prog Note ---
Internal Medicine Subjective - Subjective Service Date: 06/09/17 Patient seen and examined:: with staff (HE FEELS BETTER) Patient is:: awake, non-verbal, in bed Patient Complaints of:: congestion Per staff patient has:: no adverse event Internal Medicine Objective - Results Result Diagrams: 06/09/17 05:55 06/09/17 05:55 Recent Labs: Laboratory Last Values WBC 13.0 Th/cmm (4.8-10.8) H 06/09/17 05:55 RBC 3.42 Mil/cmm (3.80-5.80) L 06/09/17 05:55 Hgb 11.1 gm/dL (12-16) L 06/09/17 05:55 Hct 33.9 % (41.0-60) L D 06/09/17 05:55 MCV 99.1 fl (80-99) H 06/09/17 05:55 MCH 32.4 pg (27.0-31.0) H 06/09/17 05:55 MCHC Differential 32.7 pg (28.0-36.0) 06/09/17 05:55 RDW 14.5 % (11.5-20.0) 06/09/17 05:55 Plt Count 234 Th/cmm (150-400) 06/09/17 05:55 MPV 8.6 fl 06/09/17 05:55 Band Neutrophils % 1 % (0-10) 06/09/17 05:55 Neutrophils (Manual) 92 % (40-80) H 06/09/17 05:55 Lymphocytes 3 % (20-50) L 06/09/17 05:55 Monocytes 4 % (2-10) 06/09/17 05:55 Eosinophils 3 % (0-5) 06/04/17 09:10 Platelet Estimate ADEQUATE (NORMAL) 06/09/17 05:55 PT 11.1 SECONDS (9.5-11.5) 06/04/17 09:10 INR 1.07 (0.5-1.4) 06/04/17 09:10 PTT (Actin FS) 22.5 SECONDS (26.0-38.0) L 06/04/17 09:10 D-Dimer 465 ng/mL (100-400) H 06/04/17 09:10 Specimen Source Arterial 06/07/17 15:35 Sample Site Right Radial 06/07/17 15:35 pH 7.35 (7.35-7.45) 06/07/17 15:35 pCO2 65.0 mmHg (35.0-45.0) H* 06/07/17 15:35 pO2 63.0 mmHg (80.0-100.0) L 06/07/17 15:35 HCO3 31.1 mEq/L (20.0-26.0) H 06/07/17 15:35 Base Excess 8.1 mEq/L (-3.0-3.0) H 06/07/17 15:35 O2 Saturation 91.0 % (92.0-100.0) L 06/07/17 15:35 Guy Test Positive 06/07/17 15:35 Vent Rate N/A 06/07/17 15:35 Inspired O2 32 06/07/17 15:35 Tidal Volume N/A 06/07/17 15:35 PEEP N/A 06/07/17 15:35 Pressure (ins/psv/peep) N/A 06/07/17 15:35 Critical Value DM 06/07/17 15:35 Sodium 144 mEq/L (136-145) 06/09/17 05:55 Potassium 4.6 mEq/L (3.5-5.1) 06/09/17 05:55 Chloride 104 mEq/L (98-107) 06/09/17 05:55 Carbon Dioxide 39.4 mEq/L (21.0-31.0) H 06/09/17 05:55 Anion Gap 5.2 (7.0-16.0) L 06/09/17 05:55 BUN 23 mg/dL (7-25) 06/09/17 05:55 Creatinine 0.8 mg/dL (0.7-1.3) 06/09/17 05:55 Est GFR ( Amer) TNP 06/09/17 05:55 Est GFR (Non-Af Amer) TNP 06/09/17 05:55 BUN/Creatinine Ratio 28.8 06/09/17 05:55 Glucose 144 mg/dL (70-105) H 06/09/17 05:55 Whole Bld Lactic Acid 1.34 mmol/L (0.60-1.99) 06/04/17 09:10 Calcium 9.0 mg/dL (8.6-10.3) 06/09/17 05:55 Magnesium 2.0 mg/dL (1.9-2.7) 06/05/17 15:47 Total Bilirubin 0.5 mg/dL (0.3-1.0) 06/05/17 05:15 AST 19 U/L (13-39) 06/05/17 05:15 ALT 56 U/L (7-52) H 06/05/17 05:15 Alkaline Phosphatase 54 U/L (34-104) 06/05/17 05:15 Creatine Kinase 53 U/L (30-223) 06/04/17 09:10 Troponin I 0.04 ng/mL (0.01-0.05) 06/04/17 09:10 B-Natriuretic Peptide 1030.0 pg/mL (5.0-100.0) H 06/09/17 05:55 Total Protein 5.2 gm/dL (6.0-8.3) L 06/05/17 05:15 Albumin 3.0 gm/dL (4.2-5.5) L 06/05/17 05:15 Globulin 2.2 gm/dL 06/05/17 05:15 Albumin/Globulin Ratio 1.4 (1.0-1.8) 06/05/17 05:15 Triglycerides 76 mg/dL (<150) 06/04/17 09:10 Cholesterol 177 mg/dL (<200) 06/04/17 09:10 LDL Cholesterol Direct 95 mg/dL (75-193) 06/04/17 09:10 HDL Cholesterol 75 mg/dL (23-92) 06/04/17 09:10 Urine Source MIDSTREAM 06/04/17 10:20 Urine Color YELLOW 06/04/17 10:20 Urine Clarity HAZY (CLEAR) 06/04/17 10:20 Urine pH 6.0 (4.6 - 8.0) 06/04/17 10:20 Ur Specific [place] >= 1.030 (1.005-1.030) 06/04/17 10:20 Urine Protein 30 mg/dL (NEGATIVE) H 06/04/17 10:20 Urine Glucose (UA) NEGATIVE mg/dL (NEGATIVE) 06/04/17 10:20 Urine Ketones NEGATIVE mg/dL (NEGATIVE) 06/04/17 10:20 Urine Blood NEGATIVE (NEGATIVE) 06/04/17 10:20 Urine Nitrate NEGATIVE (NEGATIVE) 06/04/17 10:20 Urine Bilirubin NEGATIVE (NEGATIVE) 06/04/17 10:20 Urine Urobilinogen 0.2 E.U./dL (0.2 - 1.0) 06/04/17 10:20 Ur Leukocyte Esterase NEGATIVE (NEGATIVE) 06/04/17 10:20 Urine RBC 0-2 /hpf (0-5) H 06/04/17 10:20 Urine WBC 2-5 /hpf (0-5) H 06/04/17 10:20 Ur Epithelial Cells FEW /lpf (FEW) 06/04/17 10:20 Urine Bacteria FEW /hpf (NONE SEEN) 06/04/17 10:20 Fine Granular Casts 0-2 /lpf (NONE SEEN) H 06/04/17 10:20 Urine Mucus FEW /lpf (FEW) 06/04/17 10:20 Vancomycin Trough 25.5 ug/mL (10-20) H 06/09/17 09:00 Influenza A (Rapid) NEG FOR INF A 06/04/17 16:55 Influenza B (Rapid) NEG FOR INF B 06/04/17 16:55 - Physical Exam Vitals and I&O: Vital Signs Temp 97.9 F 06/09/17 20:00 Pulse 96 06/09/17 21:52 Resp 23 06/09/17 20:00 BP 128/68 06/09/17 21:52 Pulse Ox 99 06/09/17 20:00 Intake & Output 06/09/17 06/09/17 06/10/17 06:59 18:59 06:59 Intake Total 450 50 Output Total 2000 Balance 450 50 -2000 Weight (lbs) 79.379 kg Intake: Intake, IV Amount 450 50 Levofloxacin 250mg/50mL 50 250 mg In 50 ml @ 50 mls/ hr IV Q24HR [facility] Rx#: [id number] Piperacillin Sodium/ 150 50 Tazobact 3.375 gm In Sodium Chloride 0.9% 50 ml @ 100 mls/hr IV Q6HR [facility] Rx#:[id number] Vancomycin HCl 1.25 gm In 250 Sodium Chloride 0.9% 250 ml @ 165 mls/hr IV Q12H [facility] Rx#:[id number] Output: Urine 2000 Active Medications: Current Medications Acetaminophen (Tylenol 650mg Supp) 650 mg RC Q6H PRN PRN Reason: Fever >100 Stop: 08/03/17 12:44 Albuterol/Ipratropium (Duoneb Neb) 3 ml HHN Q6H [facility] Stop: 08/03/17 12:44 Last Admin: 06/09/17 19:06 Dose: 3 ml Aspirin (Aspirin Chewable) 81 mg PO DAILY [facility] Stop: 08/05/17 08:59 Last Admin: 06/09/17 08:55 Dose: 81 mg Atorvastatin Calcium (Lipitor) 10 mg PO DAILY [facility] PRN Reason: Protocol Stop: 08/06/17 08:59 Last Admin: 06/09/17 08:55 Dose: 10 mg Budesonide (Pulmicort) 0.5 mg HHN BIDRT [facility] Stop: 08/07/17 18:59 Last Admin: 06/09/17 19:06 Dose: 0.5 mg Calcium Carbonate (Os-Tai) 500 mg PO DAILY [facility] Stop: 08/05/17 08:59 Last Admin: 06/09/17 08:55 Dose: 500 mg Enoxaparin Sodium (Lovenox) 40 mg SUBQ Q12HR [facility] Stop: 08/03/17 20:59 Last Admin: 06/09/17 21:53 Dose: 40 mg Furosemide (Lasix) 40 mg IVP DAILY [facility] Stop: 08/09/17 08:59 Levofloxacin (Levaquin Pb) 250 mg in 50 mls @ 50 mls/hr IV Q24HR [facility] Stop: 08/03/17 16:59 Last Admin: 06/09/17 16:54 Dose: 50 mls/hr Piperacillin Sod/Tazobactam (Sod 3.375 gm/ Sodium Chloride) 50 mls @ 100 mls/ hr IV Q6HR [facility] Stop: 08/04/17 17:59 Last Admin: 06/09/17 19:02 Dose: 100 mls/hr Vancomycin HCl 1 gm/ Sodium (Chloride) 250 mls @ 165 mls/hr IV Q12H [facility] Stop: 08/08/17 11:59 Last Admin: 06/09/17 12:00 Dose: 165 mls/hr Lactobacillus Rhamnosus (Culturelle 15b) 1 each PO DAILY [facility] Stop: 08/05/17 08:59 Last Admin: 06/09/17 08:55 Dose: 1 each Lisinopril (Zestril) 5 mg PO HS [facility] Stop: 08/04/17 20:59 Last Admin: 06/09/17 21:52 Dose: 5 mg Methylprednisolone Sodium Succinate (Solu-Medrol) 40 mg IVP Q6HR [facility] Stop: 08/03/17 12:44 Last Admin: 06/09/17 19:03 Dose: 40 mg Miscellaneous (Vancomycin Iv Per Pharmacy) 1 [facility] PRN PRN PRN Reason: PROTOCOL Stop: 08/03/17 12:44 Miscellaneous (Probiotic Screen) 1 [facility] PRN PRN PRN Reason: PROTOCOL Stop: 08/04/17 10:29 Pantoprazole Sodium (Protonix) 40 mg IVP DAILY [facility] Stop: 08/04/17 08:59 Last Admin: 06/09/17 08:55 Dose: 40 mg General: alert HEENT: NC/AT, PERRLA, EOMI, throat clear Neck: Supple, No JVD, No thyromegaly, No LAD Lungs: congested Cardiovascular: RRR, Normal S1, Normal S2, without murmur Abdomen: non-tender, tender, non-distended Extremities: clear Neurological: no change - Procedures Procedures: Procedures Procedure Code Date COLONOSCOPY 45.23 05/25/00 DIAGNOSTIC COLONOSCOPY 81857 05/25/00 DOPPLER COLOR FLOW ADD-ON 51740 11/03/99 DOPPLER ECHO EXAM HEART 54449 11/03/99 DX ULTRASOUND-HEART 88.72 11/03/99 ELECTROCARDIOGRAM 89.52 11/03/99 ELECTROCARDIOGRAM COMPLETE 86362 11/03/99 INSERT EMERGENCY AIRWAY 55773 06/04/17 INSERTION OF ENDOTRACHEAL AIRWAY INTO TRACHEA, VIA OPENING [id number] 06/04/17 RESPIRATORY VENTILATION, 24-96 CONSECUTIVE HOURS [id number] 06/04/17 TTE W/O DOPPLER COMPLETE 29077 11/03/99 VENT MGMT INPAT INIT DAY 49318 06/04/17 VENT MGMT INPAT SUBQ DAY 29474 06/04/17 Internal Medicine Assmt/Plan - Assessment Assessment: 1.PNEUMONIA. 2.COPD EXACERBATION. 3.CHF. 4.ACUTE REPIRATORY FAILURE.OFF VENT. - Plan Plan: CONTINUE ON CURRENT MEDICATION AND DIET.MECHANICAL SOFT DIET. Nutritional Asmnt/Malnutr-PDOC - Dietary Evaluation Malnutrition Findings (Please click <Entered> for more info): Nutritional Asmnt/Malnutrition Start: 06/06/17 09: 18 Text: Status: Complete Freq: Document 06/06/17 11:50 JUAN CARLOS (Rec: 06/06/17 12:00 JUAN CARLOS AYUSH- FNS4) Nutritional Asmnt/Malnutrition Patient General Information Nutritional Screening High Risk Consult Diagnosis PNA, Acute Respiratory Failure Pertinent Medical Hx/Surgical Hx COPD Subjective Information Patient intubated without initiation of enteral feedings . Current Diet Order/ Nutrition Support None Patient / S.O Not Indicated Pertinent Medications Os-tai, Culturelle, Solu- medrol, Protonix, Abx, Potassiu Chloride Pertinent Labs 06/05: Ca 8.4, ALT 56 ( decreased), BNP 810, Albumin 3 (Decreased) Nutritional Hx/Data Height 1.7 m Height (Calculated Centimeters) 170.2 Current Weight (lbs) 68.946 kg Weight (Calculated Kilograms) 68.9 Weight (Calculated Grams) 09298.0 [place] Body Weight 148 % [place] Body Weight 102 Body Mass Index (BMI) 23.8 Recent Weight Change No Weight Status Approriate GI Symptoms GI Symptoms None Last BM None noted in EMR since admission Difficult in: None Food Allergies No: None noted Cultural/Ethnic/Amish Belief None indicated Usual diet at home Unknown Skin Integrity/Comment: Intact, Abraham 15 Current %PO Negligible < 25% Estimated Nutritional Goals BEE in Kcals: Using Current wt Calories/Kcals/Kg 69kg Current body weight Kcals Calculated ~1946-7262 kcal/day Protein: Using Current wt Protein g/k-1.2 gm/day Protein Calculated ~70-80 gm/day Fluid: ml ~0286-3319 ml/day ( 1 ml/kcal) Nutritional Problem 1. Problem Problem Inadequate energy intake related to Etiology intubation without initiation of enteral nutrition as evidenced by Signs/Symptoms: meeting <25% of estimated nutrient needs at this time. Intervention/Recommendation Comments 1. If patient will remain intubated, when medically appropriate start tube feeding , Nutren Pulmonary at 50 ml/hr to provide 1200 ml volume, 1800 kcal, 81 gm protein, 938 ml free water. Free water flushes 100 ml q 4 hours to better meet fluid needs. Expected Outcomes/Goals Expected Outcomes/Goals Patient receives nutrition within 24 hours, skin integrity remains WNL, Nutrition related labs normalize, weight stable
[2017-06-10] MEDS: methylPREDNISolone SS 40 mg Vial IVP SCH ×3 (00:11→12:33)
[2017-06-10] MEDS: Albuterol/Ipratropium Neb 3 ML AERS HHN SCH ×4 (00:32→14:06)
[2017-06-10] MEDS ORDERED: methylPREDNISolone SS 40 mg Vial ONE (05:26)
[2017-06-10 05:57] LABS: ANION GAP 6.4 (7.0-16.0); BUN - UREA NITROGEN 24 mg/dL (7-25); CARBON DIOXIDE 36.8 mEq/L (21.0-31.0); CHLORIDE 102 mEq/L (98-107); CREATININE - SERUM 0.8 mg/dL (0.7-1.3); GLUCOSE 130 mg/dL (70-105); POTASSIUM SERUM 4.2 mEq/L (3.5-5.1); SODIUM SERUM 141 mEq/L (136-145)
[2017-06-10] MEDS: Enoxaparin 40 mg/0.4 mL 0.4mL Syr SUBQ SCH (08:18)
[2017-06-10] MEDS: Aspirin 81mg Chewable Tab PO SCH (08:19)
[2017-06-10] MEDS: Atorvastatin Calcium 10 MG TAB PO SCH (08:19)
[2017-06-10] MEDS: Budesonide 0.5 Mg/2 mL Ud HHN SCH (08:19)
[2017-06-10] MEDS: Lactobacillus Rhamnosus GG 15 Billion CFU CAP.SPRINK PO SCH (08:19)
[2017-06-10] MEDS ORDERED: Budesonide 0.5 Mg/2 mL Ud HHN ONE (08:21)
--- NOTE | 2017-06-10 12:36 | Internal Medicine Prog Note ---
Internal Medicine Subjective - Subjective Service Date: 06/10/17 Patient seen and examined:: with staff (he feels better,no sob.) Patient is:: awake, non-verbal, in bed Patient Complaints of:: congestion Per staff patient has:: no adverse event Internal Medicine Objective - Results Result Diagrams: 06/09/17 05:55 06/10/17 05:23 Recent Labs: Laboratory Last Values WBC 13.0 Th/cmm (4.8-10.8) H 06/09/17 05:55 RBC 3.42 Mil/cmm (3.80-5.80) L 06/09/17 05:55 Hgb 11.1 gm/dL (12-16) L 06/09/17 05:55 Hct 33.9 % (41.0-60) L D 06/09/17 05:55 MCV 99.1 fl (80-99) H 06/09/17 05:55 MCH 32.4 pg (27.0-31.0) H 06/09/17 05:55 MCHC Differential 32.7 pg (28.0-36.0) 06/09/17 05:55 RDW 14.5 % (11.5-20.0) 06/09/17 05:55 Plt Count 234 Th/cmm (150-400) 06/09/17 05:55 MPV 8.6 fl 06/09/17 05:55 Band Neutrophils % 1 % (0-10) 06/09/17 05:55 Neutrophils (Manual) 92 % (40-80) H 06/09/17 05:55 Lymphocytes 3 % (20-50) L 06/09/17 05:55 Monocytes 4 % (2-10) 06/09/17 05:55 Eosinophils 3 % (0-5) 06/04/17 09:10 Platelet Estimate ADEQUATE (NORMAL) 06/09/17 05:55 PT 11.1 SECONDS (9.5-11.5) 06/04/17 09:10 INR 1.07 (0.5-1.4) 06/04/17 09:10 PTT (Actin FS) 22.5 SECONDS (26.0-38.0) L 06/04/17 09:10 D-Dimer 465 ng/mL (100-400) H 06/04/17 09:10 Specimen Source Arterial 06/07/17 15:35 Sample Site Right Radial 06/07/17 15:35 pH 7.35 (7.35-7.45) 06/07/17 15:35 pCO2 65.0 mmHg (35.0-45.0) H* 06/07/17 15:35 pO2 63.0 mmHg (80.0-100.0) L 06/07/17 15:35 HCO3 31.1 mEq/L (20.0-26.0) H 06/07/17 15:35 Base Excess 8.1 mEq/L (-3.0-3.0) H 06/07/17 15:35 O2 Saturation 91.0 % (92.0-100.0) L 06/07/17 15:35 Guy Test Positive 06/07/17 15:35 Vent Rate N/A 06/07/17 15:35 Inspired O2 32 06/07/17 15:35 Tidal Volume N/A 06/07/17 15:35 PEEP N/A 06/07/17 15:35 Pressure (ins/psv/peep) N/A 06/07/17 15:35 Critical Value DM 06/07/17 15:35 Sodium 141 mEq/L (136-145) 06/10/17 05:23 Potassium 4.2 mEq/L (3.5-5.1) 06/10/17 05:23 Chloride 102 mEq/L (98-107) 06/10/17 05:23 Carbon Dioxide 36.8 mEq/L (21.0-31.0) H 06/10/17 05:23 Anion Gap 6.4 (7.0-16.0) L 06/10/17 05:23 BUN 24 mg/dL (7-25) 06/10/17 05:23 Creatinine 0.8 mg/dL (0.7-1.3) 06/10/17 05:23 Est GFR ( Amer) TNP 06/10/17 05:23 Est GFR (Non-Af Amer) TNP 06/10/17 05:23 BUN/Creatinine Ratio 30.0 06/10/17 05:23 Glucose 130 mg/dL (70-105) H 06/10/17 05:23 Whole Bld Lactic Acid 1.34 mmol/L (0.60-1.99) 06/04/17 09:10 Calcium 9.0 mg/dL (8.6-10.3) 06/10/17 05:23 Magnesium 2.0 mg/dL (1.9-2.7) 06/05/17 15:47 Total Bilirubin 0.5 mg/dL (0.3-1.0) 06/05/17 05:15 AST 19 U/L (13-39) 06/05/17 05:15 ALT 56 U/L (7-52) H 06/05/17 05:15 Alkaline Phosphatase 54 U/L (34-104) 06/05/17 05:15 Creatine Kinase 53 U/L (30-223) 06/04/17 09:10 Troponin I 0.04 ng/mL (0.01-0.05) 06/04/17 09:10 B-Natriuretic Peptide 1300.0 pg/mL (5.0-100.0) H 06/10/17 05:23 Total Protein 5.2 gm/dL (6.0-8.3) L 06/05/17 05:15 Albumin 3.0 gm/dL (4.2-5.5) L 06/05/17 05:15 Globulin 2.2 gm/dL 06/05/17 05:15 Albumin/Globulin Ratio 1.4 (1.0-1.8) 06/05/17 05:15 Triglycerides 76 mg/dL (<150) 06/04/17 09:10 Cholesterol 177 mg/dL (<200) 06/04/17 09:10 LDL Cholesterol Direct 95 mg/dL (75-193) 06/04/17 09:10 HDL Cholesterol 75 mg/dL (23-92) 06/04/17 09:10 Urine Source MIDSTREAM 06/04/17 10:20 Urine Color YELLOW 06/04/17 10:20 Urine Clarity HAZY (CLEAR) 06/04/17 10:20 Urine pH 6.0 (4.6 - 8.0) 06/04/17 10:20 Ur Specific [place] >= 1.030 (1.005-1.030) 06/04/17 10:20 Urine Protein 30 mg/dL (NEGATIVE) H 06/04/17 10:20 Urine Glucose (UA) NEGATIVE mg/dL (NEGATIVE) 06/04/17 10:20 Urine Ketones NEGATIVE mg/dL (NEGATIVE) 06/04/17 10:20 Urine Blood NEGATIVE (NEGATIVE) 06/04/17 10:20 Urine Nitrate NEGATIVE (NEGATIVE) 06/04/17 10:20 Urine Bilirubin NEGATIVE (NEGATIVE) 06/04/17 10:20 Urine Urobilinogen 0.2 E.U./dL (0.2 - 1.0) 06/04/17 10:20 Ur Leukocyte Esterase NEGATIVE (NEGATIVE) 06/04/17 10:20 Urine RBC 0-2 /hpf (0-5) H 06/04/17 10:20 Urine WBC 2-5 /hpf (0-5) H 06/04/17 10:20 Ur Epithelial Cells FEW /lpf (FEW) 06/04/17 10:20 Urine Bacteria FEW /hpf (NONE SEEN) 06/04/17 10:20 Fine Granular Casts 0-2 /lpf (NONE SEEN) H 06/04/17 10:20 Urine Mucus FEW /lpf (FEW) 06/04/17 10:20 Vancomycin Trough 25.9 ug/mL (10-20) H 06/10/17 10:50 Influenza A (Rapid) NEG FOR INF A 06/04/17 16:55 Influenza B (Rapid) NEG FOR INF B 06/04/17 16:55 - Physical Exam Vitals and I&O: Vital Signs Temp 97.6 F 06/10/17 12:00 Pulse 92 06/10/17 12:00 Resp 28 06/10/17 12:00 BP 126/65 06/10/17 12:00 Pulse Ox 99 06/10/17 12:00 Intake & Output 06/09/17 06/10/17 06/10/17 18:59 06:59 18:59 Intake Total 300 270 Output Total 2600 Balance 300 -2330 Weight (lbs) 79.379 kg Intake: Intake, IV Amount 300 150 Piperacillin Sodium/ 50 150 Tazobact 3.375 gm In Sodium Chloride 0.9% 50 ml @ 100 mls/hr IV Q6HR [facility] Rx#:[id number] Vancomycin HCl 1 gm In 250 Sodium Chloride 0.9% 250 ml @ 165 mls/hr IV Q12H [facility] Rx#:[id number] Oral 120 Output: Urine 2600 Other: # Bowel Movements 0 Active Medications: Current Medications Acetaminophen (Tylenol 650mg Supp) 650 mg RC Q6H PRN PRN Reason: Fever >100 Stop: 08/03/17 12:44 Albuterol/Ipratropium (Duoneb Neb) 3 ml HHN Q6H [facility] Stop: 08/03/17 12:44 Last Admin: 06/10/17 05:47 Dose: 3 ml Aspirin (Aspirin Chewable) 81 mg PO DAILY [facility] Stop: 08/05/17 08:59 Last Admin: 06/10/17 08:19 Dose: 81 mg Atorvastatin Calcium (Lipitor) 10 mg PO DAILY [facility] PRN Reason: Protocol Stop: 08/06/17 08:59 Last Admin: 06/10/17 08:19 Dose: 10 mg Budesonide (Pulmicort) 0.5 mg HHN BIDRT [facility] Stop: 08/07/17 18:59 Last Admin: 06/10/17 08:19 Dose: 0.5 mg Calcium Carbonate (Os-Tai) 500 mg PO DAILY [facility] Stop: 08/05/17 08:59 Last Admin: 06/10/17 08:19 Dose: 500 mg Enoxaparin Sodium (Lovenox) 40 mg SUBQ Q12HR [facility] Stop: 08/03/17 20:59 Last Admin: 06/10/17 08:18 Dose: 40 mg Furosemide (Lasix) 40 mg IVP DAILY [facility] Stop: 08/09/17 08:59 Last Admin: 06/10/17 08:19 Dose: 40 mg Levofloxacin (Levaquin Pb) 250 mg in 50 mls @ 50 mls/hr IV Q24HR [facility] Stop: 08/03/17 16:59 Last Admin: 06/09/17 16:54 Dose: 50 mls/hr Piperacillin Sod/Tazobactam (Sod 3.375 gm/ Sodium Chloride) 50 mls @ 100 mls/ hr IV Q6HR [facility] Stop: 08/04/17 17:59 Last Admin: 06/10/17 12:33 Dose: 100 mls/hr Vancomycin HCl 1 gm/ Sodium (Chloride) 250 mls @ 165 mls/hr IV Q24H [facility] Stop: 08/10/17 05:59 Lactobacillus Rhamnosus (Culturelle 15b) 1 each PO DAILY [facility] Stop: 08/05/17 08:59 Last Admin: 06/10/17 08:19 Dose: 1 each Lisinopril (Zestril) 5 mg PO HS [facility] Stop: 08/04/17 20:59 Last Admin: 06/09/17 21:52 Dose: 5 mg Methylprednisolone Sodium Succinate (Solu-Medrol) 40 mg IVP Q6HR [facility] Stop: 08/03/17 12:44 Last Admin: 06/10/17 12:33 Dose: 40 mg Miscellaneous (Vancomycin Iv Per Pharmacy) 1 [facility] PRN PRN PRN Reason: PROTOCOL Stop: 08/03/17 12:44 Miscellaneous (Probiotic Screen) 1 [facility] PRN PRN PRN Reason: PROTOCOL Stop: 08/04/17 10:29 Pantoprazole Sodium (Protonix) 40 mg IVP DAILY [facility] Stop: 08/04/17 08:59 Last Admin: 06/10/17 08:18 Dose: 40 mg General: alert HEENT: NC/AT, PERRLA, EOMI, throat clear Neck: Supple, No JVD, No thyromegaly, No LAD Lungs: congested Cardiovascular: RRR, Normal S1, Normal S2, without murmur Abdomen: non-tender, tender, non-distended Extremities: clear Neurological: no change - Procedures Procedures: Procedures Procedure Code Date COLONOSCOPY 45.23 05/25/00 DIAGNOSTIC COLONOSCOPY 29928 05/25/00 DOPPLER COLOR FLOW ADD-ON 47797 11/03/99 DOPPLER ECHO EXAM HEART 07280 11/03/99 DX ULTRASOUND-HEART 88.72 11/03/99 ELECTROCARDIOGRAM 89.52 11/03/99 ELECTROCARDIOGRAM COMPLETE 79798 11/03/99 INSERT EMERGENCY AIRWAY 02060 06/04/17 INSERTION OF ENDOTRACHEAL AIRWAY INTO TRACHEA, VIA OPENING [id number] 06/04/17 RESPIRATORY VENTILATION, 24-96 CONSECUTIVE HOURS [id number] 06/04/17 TTE W/O DOPPLER COMPLETE 08166 11/03/99 VENT MGMT INPAT INIT DAY 86453 06/04/17 VENT MGMT INPAT SUBQ DAY 82497 06/04/17 Internal Medicine Assmt/Plan - Assessment Assessment: 1.PNEUMONIA. 2.COPD EXACERBATION. 3.CHF. 4.ACUTE REPIRATORY FAILURE.OFF VENT. - Plan Plan: CONTINUE ON CURRENT MEDICATION AND DIET.TRANSFER TO BY AMBULANCE IF BED IS AVAILABLE.. Nutritional Asmnt/Malnutr-PDOC - Dietary Evaluation Malnutrition Findings (Please click <Entered> for more info): Nutritional Asmnt/Malnutrition Start: 06/06/17 09: 18 Text: Status: Complete Freq: Document 06/06/17 11:50 JUAN CARLOS (Rec: 06/06/17 12:00 JUAN CARLOS [place]- FNS4) Nutritional Asmnt/Malnutrition Patient General Information Nutritional Screening High Risk Consult Diagnosis PNA, Acute Respiratory Failure Pertinent Medical Hx/Surgical Hx COPD Subjective Information Patient intubated without initiation of enteral feedings . Current Diet Order/ Nutrition Support None Patient / S.O Not Indicated Pertinent Medications Os-tai, Culturelle, Solu- medrol, Protonix, Abx, [place] Chloride Pertinent Labs 06/05: Ca 8.4, ALT 56 ( decreased), BNP 810, Albumin 3 (Decreased) Nutritional Hx/Data Height 1.7 m Height (Calculated Centimeters) 170.2 Current Weight (lbs) 68.946 kg Weight (Calculated Kilograms) 68.9 Weight (Calculated Grams) 72705.0 [place] Body Weight 148 % [place] Body Weight 102 Body Mass Index (BMI) 23.8 Recent Weight Change No Weight Status Approriate GI Symptoms GI Symptoms None Last BM None noted in EMR since admission Difficult in: None Food Allergies No: None noted Cultural/Ethnic/Faith Belief None indicated Usual diet at home Unknown Skin Integrity/Comment: Intact, Abraham 15 Current %PO Negligible < 25% Estimated Nutritional Goals BEE in Kcals: Using Current wt Calories/Kcals/Kg 69kg Current body weight Kcals Calculated ~7732-1027 kcal/day Protein: Using Current wt Protein g/k-1.2 gm/day Protein Calculated ~70-80 gm/day Fluid: ml ~4089-4744 ml/day ( 1 ml/kcal) Nutritional Problem 1. Problem Problem Inadequate energy intake related to Etiology intubation without initiation of enteral nutrition as evidenced by Signs/Symptoms: meeting <25% of estimated nutrient needs at this time. Intervention/Recommendation Comments 1. If patient will remain intubated, when medically appropriate start tube feeding , Nutren Pulmonary at 50 ml/hr to provide 1200 ml volume, 1800 kcal, 81 gm protein, 938 ml free water. Free water flushes 100 ml q 4 hours to better meet fluid needs. Expected Outcomes/Goals Expected Outcomes/Goals Patient receives nutrition within 24 hours, skin integrity remains WNL, Nutrition related labs normalize, weight stable
[2017-06-10] MEDS: Levofloxacin 250mg/50mL 250 MG/50 ML BAG IV SCH (17:37)
--- NOTE | 2017-06-24 21:51 | Discharge Summary ---
DATE OF DISCHARGE: 06/10/2017 FINAL DIAGNOSES: 1. Bilateral pneumonia. 2. Acute respiratory failure. 3. Acute exacerbation of chronic obstructive pulmonary disease. 4. Acute exacerbation of congestive heart failure. REVIEW OF HISTORY: The patient is a 77-year-old male with long history of COPD and CHF, presented to the Emergency Room with acute shortness of breath. Initial workup sent for bilateral pneumonia, acute respiratory failure. The patient was intubated. Admitted to ICU. Electrician Second consulted on the case. Infectious Disease consultation obtained. The patient was started on IV fluid, antibiotic, breathing treatment. PHYSICAL EXAMINATION: VITAL SIGNS: Temperature was 99.3, heart rate 100, blood pressure 114/65. CHEST: Diminished breathing sound. HEART: S1 and S2 normal. ABDOMEN: Soft. Bowel sounds positive. EXTREMITIES: No edema. LABORATORY DATA: White blood cells 16.9, hemoglobin 12.4, hematocrit 37.3. Sodium 135, potassium 4.5, BUN 15, and creatinine 0.6. COURSE OF HOSPITALIZATION: During his hospitalization, the patient was seen by the infectious disease specialist, brake mechanic, and air table operator. On 06/06/2017, the patient was still lethargic. The patient extubated and started on BiPAP. On 06/08/2017, the patient was more awake, still confused. DISPOSITION: On 06/10/2017, the patient was transferred to [facility] upon the request of the insurance. CONDITION ON DISCHARGE: Stable. MEDICATIONS: Follow discharge reconciliation. [facility]# [id number]
== END 2017-06-10 18:35 | disposition short-term general hospital (02) | DRG 871 ==
LOC: ER 08:22 → ICU 11:50
PROVIDERS: ADMIT Family Medicine; ATTEND Family Medicine
PROC: 0BH17EZ Insertion of Endotracheal Airway into Trachea, Via Natural or Artificial Opening (ICD-10-PCS; principal; 2017-06-04)
PROC: 5A1945Z Respiratory Ventilation, 24-96 Consecutive Hours (ICD-10-PCS; 2017-06-04)
PROC: 5A09457 Assistance with Respiratory Ventilation, 24-96 Consecutive Hours, Continuous Positive Airway Pressure (ICD-10-PCS; 2017-06-06)
DX: A41.9 Sepsis, unspecified organism (principal); J18.9 Pneumonia, unspecified organism; J96.01 Acute respiratory failure with hypoxia; I11.0 Hypertensive heart disease with heart failure; J44.0 Chronic obstructive pulmonary disease with (acute) lower respiratory infection; I50.9 Heart failure, unspecified; J44.1 Chronic obstructive pulmonary disease with (acute) exacerbation; E87.1 Hypo-osmolality and hyponatremia; F17.210 Nicotine dependence, cigarettes, uncomplicated; I25.10 Atherosclerotic heart disease of native coronary artery without angina pectoris; Z95.1 Presence of aortocoronary bypass graft; Z82.49 Family history of ischemic heart disease and other diseases of the circulatory system; Z86.718 Personal history of other venous thrombosis and embolism; Z72.89 Other problems related to lifestyle
CPT/HCPCS: 36415-UA; 36600-90; 71010-TC; 71250-TC; 80048-TC; 80053-TC; 80061-TC; 80202-TC; 81001-TC; 82550-TC; 82803-TC; 83605; 83735-TC; 83880-TC; 84484-TC; 85007-TC; 85025-TC; 85027-TC; 85379-TC; 85610-TC; 85730-TC; 87070; 87086-90; 87804-TC; 90779; 94003; 94660; 94760; 99201; C9113; J0330; J1650; J1940; J1956; J2060; J2250; J2543; J2920; J3370; J7030; J7613; X3401; Z7610